=== PATIENT | female | born 1960 | race Caucasian/White ===

== ENCOUNTER 2023-04-30 09:05 | Outpatient (AMB) | payer MEDICARE, SELFPAY ==
--- NOTE | 2023-04-30 09:07 | A.OFFPC_ITS ---
Vital Signs 04/30/23 09:09 Height 5 ft 6.5 in Weight 182 lb 2 oz BMI 29.0 BP 122/72 Blood Pressure Location Lt brachial Position Sitting Pulse 67 Pulse Source Pulse Oximeter Pulse Oximetry (%) 99 Oxygen Delivery Method Room Air Intake Visit Reasons: 6 Month F/Up Intake Note: Patient is here to follow up on HTN. 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 Union Representative: Not Required per policy Accompanied by: Self / Same As Patient Allergies No Known Allergies Allergy (Verified 04/30/23 09:54) Medication List - Last Reconciled 04/30/23 by Evan Peterson MD amlodipine 2.5 mg PO DAILY hydrochlorothiazide 25 mg PO QAM lisinopril 20 mg PO DAILY 90 days Tobacco use date assessed: 04/30/23 Dental Screening Dental Screen Date: 04/30/23 Did you have a dental visit in the last 12 months?: No Did you have a dental problem in the last 6 months where you did not have access to dental care?: No Was dental information given to patient?: No HPI 6 Month F/Up HPI Details 62-year-old female presents to the offic e to discuss her chronic medical conditions. Patient is compliant with her blood pressure medications. She reports no side effects. Patient continues to have mobility issues and speech issues. She uses a walker. She needs the walker even at home. 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 Patient is seeing a neurologist for this. She received radiation on the breast in December. [facility] Medical History Stage IV breast cancer in female Essential (primary) hypertension Surgical History History of brain surgery Social History Housing: House Alcohol intake: current Alcohol intake frequency: holidays/special occasions only Patient Tobacco Use Status: Former Tobacco user e-Cigarette/Vaping Use: Never Used Second Hand Smoke Exposure: No service: No Current occupational status: disabled Cognitive needs: Yes (walker/cane) Hearing needs: No Vision needs: Yes (glasses) Questionnaire Thrive Questionnaire Date Thrive assessed: 10/30/22 PRITI-7 AMB Questionnaire PRITI-7 Date PRITI - 7 assessed: 10/30/22 Source: Developed by Drs. Piotr Catherine, Blanca Parekh, Sal Avila and colleagues, with an educational rosana from [employer]. Physical exam (Primary Care) Vital Signs: Last Vital Signs Pulse 67 04/30/23 09:09 BP 122/72 04/30/23 09:09 Pulse Ox 99 04/30/23 09:09 Oxygen Delivery Method Room Air 04/30/23 09:09 Care Plan Goal for BP management: Blood pressure is in range. BMI result Body Mass Index 29.0 Tobacco/Smoking Status: Tobacco use Status Tobacco use date assessed 04/30/23 04/30/23 09:13 Patient Tobacco Use Status Former Tobacco user 04/30/23 09:13 e-Cigarette/Vaping Use Never Used 04/30/23 09:13 Thrive Assessment: Date of Thrive Assessment Date Thrive assessed 10/30/22 04/30/23 09:13 Const General: cooperative and healthy appearing Nutritional Appearance: well nourished Orientation/consciousness: patient oriented x3 Limitations: no limitations HENMT Head: Yes normal to inspection Eyes General: appearance normal, both eyes and all related structures Neck Neck: Yes normal visual inspection Chest Chest palpation & inspection: normal palpation of entire chest wall Resp Effort & Inspection: normal respiratory effort Neuro General: patient oriented x3 Assessment and Plan Assessment & Plan (1) Stage IV breast cancer in female: Code(s): C50.919 - Malignant neoplasm of unspecified site of unspecified female breast Plan: Continue to follow-up with her oncologist at [facility]. She is also being evaluated by her neurologist for gait and speech issues. Patient continues to have slight slurring in the speech. (2) Essential (primary) hypertension: Code(s): I10 - Essential (primary) hypertension Plan: Blood pressure is stable. Continue medications at same dosage. Coding Level of Care Code Est Pt Level 4 (44917) Diagnoses Stage IV breast cancer in female C50.919 Essential (primary) hypertension I10
[2023-04-30 09:09] VITALS: BP 122/72; PULSE 67; O2SAT 99; BMI 29.0
== END 2023-04-30 09:49 | disposition home or self-care (01) ==
PROVIDERS: PCP Internal Medicine; Visit Provider Internal Medicine
DX: C50.919 Malignant neoplasm of unspecified site of unspecified female breast (principal); I10 Essential (primary) hypertension
CPT/HCPCS: 99214

== ENCOUNTER 2023-10-29 08:13 | Outpatient (AMB) | payer MEDICARE, SELFPAY ==
--- NOTE | 2023-10-29 08:31 | A.OFFPC_ITS ---
Vital Signs 10/29/23 08:35 Height 5 ft 6.5 in Weight 188 lb 3 oz BMI 29.9 BP 140/68 H Blood Pressure Location Lt brachial Position Sitting Pulse 72 Pulse Source Pulse Oximeter Pulse Oximetry (%) 98 Oxygen Delivery Method Room Air Intake Visit Reasons: 6mth f/u Intake Note: Patient is here to follow up on HTN. 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: No Capacitor Inspector: Not Required per policy Accompanied by: Self / Same As Patient Allergies No Known Allergies Allergy (Verified 10/29/23 08:56) Medication List - Last Reconciled 10/29/23 by Evan Peterson MD amlodipine 2.5 mg PO DAILY hydrochlorothiazide 25 mg PO QAM lisinopril 20 mg PO DAILY 90 days Tobacco use date assessed: 10/29/23 Dental Screening Dental Screen Date: 10/29/23 Did you have a dental visit in the last 12 months?: No Did you have a dental problem in the last 6 months where you did not have access to dental care?: No Was dental information given to patient?: No HPI 6mth f/u HPI Details 63-year-old female presents to the [facility] to discuss her chronic medical conditions. She is now using a walker and comes to the office alone. Patient has breast cancer with metastasis to the brain. Her current condition is stable. She is scheduled to have a biological infusion in the coming weeks. Patient gets an MRI scan every 3 months. Compliant with her medications for blood pressure. Able to function and do activities of daily living. She has weakness in the right hand due to her cancer condition. [facility] Medical History Stage IV breast cancer in female Essential (primary) hypertension Surgical History History of brain surgery Social History Housing: House Alcohol intake: current Alcohol intake frequency: holidays/special occasions only Patient Tobacco Use Status: Former Tobacco user e-Cigarette/Vaping Use: Never Used Second Hand Smoke Exposure: No service: No Current occupational status: disabled Cognitive needs: Yes (walker/cane) Hearing needs: No Vision needs: Yes (glasses) Questionnaire PHQ-9 Over the last 2 weeks, how often have you been bothered by any of the following problems? 1. Little interest or pleasure in doing things: not at all 2. Feeling down, depressed, or hopeless: not at all 3. Trouble falling or staying asleep, or sleeping too much: not at all 4. Feeling tired or having little energy: not at all 5. Poor appetite or overeating: not at all 6. Feeling bad about yourself - or that you are a failure or have let yourself or your family down: not at all 7. Trouble concentrating on things, such as reading the newspaper or watching television: not at all 8. Moving or speaking so slowly that other people could have noticed. Or the opposite - being so fidgety or restless that you have been moving around a lot more than usual: not at all 9. Thoughts that you would be better off or of hurting yourself in some way: not at all Total score: 0 Depression Screening Interpretation: Negative Depression Screening Done: Yes Source: Developed by Drs. Piotr Catherine, Blanca Parekh, Sal fernandez nd colleagues, with an educational rosana from [employer]. Thrive Questionnaire Date Thrive assessed: 10/29/23 I am a: Patient What is your living situation today?: I have a steady place to live Within the past 12 months, did the food you bought not last and you didn't have the money to get more?: Never true Within the past 12 months, did you worry whether your food would run out before you got money to buy more?: Never true Do you have trouble paying for medicines?: No Do you have trouble getting transportation to medical appointments?: No Do you have trouble paying your heating and electricity bill?: No Do you have trouble taking care of your child, family member or friend?: No Do you have trouble with day-to-day activities such as bathing, preparing meals, shopping, managing finances, etc.?: No Are you currently unemployed and looking for a job?: No Are you interested in more education?: No Currently or been in a relationship where the following occur: no concerns reported THRIVE Score: 0 AUDIT C Alcohol Use Questionnaire (AUDIT-C) 1. How often do you have a drink containing alcohol?: Monthly or less 2. How many drinks containing alcohol do you have on a typical day when you are drinking?: 1 or 2 Total Score: 1 PRITI-7 AMB Questionnaire PRITI-7 Date PRITI - 7 assessed: 10/29/23 Feeling nervous, anxious, or on edge: 0 = Not at all Not being able to stop or control worryin = Not at all Worrying too much about different things: 0 = Not at all Trouble relaxin = Not at all Being so restless that it is hard to sit still: 0 = Not at all Becoming easily annoyed or irritable: 0 = Not at all Feeling afraid as if something awful might happen: 0 = Not at all Total PRITI-7 score (0-4 normal; 5-9 mild; 10-14 moderate; 15-21 severe): 0 Source: Developed by Drs. Piotr Catherine, Blanca Parekh, Sal Avila and colleagues, with an educational rosana from [employer]. Physical exam (Primary Care) Vital Signs: Last Vital Signs Pulse 72 10/29/23 08:35 BP 140/68 H 10/29/23 08:35 Pulse Ox 98 10/29/23 08:35 Oxygen Delivery Method Room Air 10/29/23 08:35 BMI result Body Mass Index 29.9 Tobacco/Smoking Status: Tobacco use Status Tobacco use date assessed 10/29/23 10/29/23 08:40 Patient Tobacco Use Status Former Tobacco user 10/29/23 08:33 e-Cigarette/Vaping Use Never Used 10/29/23 08:33 PHQ-9: PHQ-9 Score PHQ-9: Total score 0 10/29/23 08:33 Depression Screening Interpretation: Negative Thrive Assessment: Date of Thrive Assessment Date Thrive assessed 10/29/23 10/29/23 08:33 Currently or been in a relationship where the following occur: no concerns reported Advance Care Planning discussion: Exists, not on file Date of discussion: 10/29/23 Who was present: Patient Forms completed: Health Care Proxy and MOLST Const General: cooperative and healthy appearing Nutritional Appearance: well nourished Orientation/consciousness: patient oriented x3 Limitations: no limitations HENMT Head: Yes normal to inspection Eyes General: appearance normal, both eyes and all related structures Neck Neck: Yes normal visual inspection Chest Chest palpation & inspection: normal palpation of entire chest wall Resp Effort & Inspection: normal respiratory effort Neuro General: patient oriented x3 Assessment and Plan Assessment & Plan (1) Stage IV breast cancer in female: Code(s): C50.919 - Malignant neoplasm of unspecified site of unspecified female breast Plan: Continue current treatment at [facility]. (2) Essential (primary) hypertension: Code(s): I10 - Essential (primary) hypertension Plan: BP is stable. Continue current medications at same dosage. Blood work has been ordered. Will call with results of the same. Orders: Orders Lipid Panel Today E78.00 - Pure hypercholesterolemia, unspecified Coding Level of Care Code Est Pt Level 4 (47177) Complex EM visit Add On G2211 Diagnoses Stage IV breast cancer in female C50.919 Essential (primary) hypertension I10 Additional Codes Vital Signs *Quality* - Advance Care Planning discussion: Exists, not on file ([id number])
[2023-10-29 08:35] VITALS: BP 140/68; PULSE 72; O2SAT 98; BMI 29.9
== END 2023-10-29 08:55 | disposition home or self-care (01) ==
PROVIDERS: PCP Internal Medicine; Visit Provider Internal Medicine
DX: C50.919 Malignant neoplasm of unspecified site of unspecified female breast (principal); I10 Essential (primary) hypertension; Z00.00 Encounter for general adult medical examination without abnormal findings
CPT/HCPCS: 1123F; 99214; G2211

== ENCOUNTER 2024-04-28 08:06 | Outpatient (AMB) | payer MEDICARE, SELFPAY ==
--- NOTE | 2024-04-28 08:16 | MHC.PC.OV ---
Vital Signs 04/28/24 08:17 Height 5 ft 6.5 in Weight 186 lb 4 oz BMI 29.6 BP 130/70 Blood Pressure Location Lt brachial Position Sitting Pulse 74 Pulse Source Pulse Oximeter Pulse Oximetry (%) 96 Oxygen Delivery Method Room Air Intake Visit Reasons: 6mth f/u Intake Note: Patient is here to follow up on HTN. 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 Wildlife Biology Technician: Not Required per policy Accompanied by: Self / Same As Patient Allergies No Known Allergies Allergy (Verified 04/28/24 08:17) Tobacco use date assessed: 04/28/24 Dental Screening Dental Screen Date: 10/29/23 [facility] Medical History Stage IV breast cancer in female Essential (primary) hypertension Surgical History History of brain surgery Social History Housing: House Alcohol intake: current Alcohol intake frequency: holidays/special occasions only Patient Tobacco Use Status: Former Tobacco user e-Cigarette/Vaping Use: Never Used Second Hand Smoke Exposure: Yes service: No Current occupational status: disabled Cognitive needs: Yes (walker/cane) Hearing needs: No Vision needs: Yes (glasses) Questionnaire Thrive Questionnaire Date Thrive assessed: 10/29/23 AUDIT C Alcohol Use Questionnaire (AUDIT-C) 2. How many drinks containing alcohol do you have on a typical day when you are drinking?: 1 or 2 3. How often do you have six or more drinks on one occasion?: Never Total Score: 0 PRITI-7 AMB Questionnaire PRITI-7 Date PRITI - 7 assessed: 10/29/23 Source: Developed by Drs. Piotr Catherine, Blanca Parekh, Sal Avila and colleagues, with an educational rosana from [employer]. Physical exam (Primary Care) Vital Signs: Last Vital Signs Pulse 74 04/28/24 08:17 BP 130/70 04/28/24 08:17 Pulse Ox 96 04/28/24 08:17 Oxygen Delivery Method Room Air 04/28/24 08:17 BMI result Body Mass Index 29.6 Tobacco/Smoking Status: Tobacco use Status Tobacco use date assessed 04/28/24 04/28/24 08:22 Patient Tobacco Use Status Former Tobacco user 04/28/24 08:22 e-Cigarette/Vaping Use Never Used 04/28/24 08:22 Thrive Assessment: Date of Thrive Assessment Date Thrive assessed 10/29/23 04/28/24 08:22 Coding Level of Care Code Est Pt Level 4 (80822) Complex EM visit Add On G2211 Diagnoses Stage IV breast cancer in female C50.919 Essential (primary) hypertension I10 Assessment & Plan Assessment & Plan (1) Stage IV breast cancer in female: Code(s): C50.919 - Malignant neoplasm of unspecified site of unspecified female breast Category: Medical Plan: Patient has an oncologist at [facility]. Getting all treatment including mammogram from there. Lung nodule follow up is also per the oncologist (2) Essential (primary) hypertension: Code(s): I10 - Essential (primary) hypertension Category: Medical Plan: BP is in range. Continue medications at same dosage. Labs from [facility] [place]. Plan History of Present Illness The patient is a 63-year-old female presenting with ongoing management of stage 4 breast cancer, initially diagnosed on the left side. She has been undergoing treatment, which she reports as progressing okay. However, a nodule on her lung has enlarged to 9 cm (?). She is scheduled to discuss management options with her oncologist, including possible medication changes, after the holiday season. This nodule's enlargement was identified during a routine evaluation, prompting considerations for a PET scan to better visualize it, as prior CT scans proved insufficient. The patient maintains regular monitoring through mammograms. Pertinent to her health management, her blood pressure remains under control. Social History - Primarily stays at home due to difficulty maneuvering in public spaces. - Occasionally goes out for meals or social visits. - Relies on a walker for ambulation. - Does not drive. Review of Systems - Cardiovascular: Reports stable blood pressure. - Respiratory: Denies any new respiratory symptoms. - Gastrointestinal: Reports normal appetite and bowel movements. - Vision: Reports normal vision, capable of watching TV and reading. - Urinary: Denies urinary issues. - General: Reports overall good health apart from known conditions. Physical Exam General: Appearance normal, both eyes and all related structures Nutritional Appearance: Well nourished Orientation/consciousness: Patient oriented x3 Limitations: Ambulates with a walker, not driving Head: Normal to inspection Neck: Normal visual inspection Chest: Normal palpation of entire chest wall Respiratory: Normal respiratory effort Neurology: Patient oriented x3 Results Plan - Continue current breast cancer treatment. - Evaluate lung nodule further; plan for a PET scan in May for more detailed assessment. - Monitor blood pressure; continue current medication regimen. - Discussed the need for potential medication adjustments post-holidays. Patient was informed and verbally consented to the use of an ambient scribe for clinic note documentation during this visit. Discussion Notes We reviewed the patient's current status with stage 4 breast cancer and the enlargement of a lung nodule. I indicated that a PET scan is planned for May to provide more detailed information as the current imaging is insufficient for further evaluation. We discussed continuing the current treatment for her cancer as it is effective elsewhere, and potential medication changes might be considered after upcoming discussions with her oncologist. I confirmed her blood pressure is stable, and no modifications to this treatment are necessary. Follow-up is scheduled following the results of the PET scan, and I have addressed all her questions. Patient Instructions - Continue current cancer and blood pressure medications. - Attend the scheduled PET scan appointment in May. - Report any new symptoms or concerns immediately. - Maintain regular healthcare appointments and monitoring. - Stay active as tolerated and continue using mobility aids as needed.
[2024-04-28 08:17] VITALS: BP 130/70; PULSE 74; O2SAT 96; BMI 29.6
== END 2024-04-28 08:43 | disposition home or self-care (01) ==
PROVIDERS: PCP Internal Medicine; Visit Provider Internal Medicine
DX: C50.919 Malignant neoplasm of unspecified site of unspecified female breast (principal); I10 Essential (primary) hypertension

== ENCOUNTER → 2024-04-28 08:06 | Outpatient (BNVA) | payer MEDICARE, SELFPAY | PROVIDERS: PCP Internal Medicine; Visit Provider Internal Medicine | DX: C50.919 Malignant neoplasm of unspecified site of unspecified female breast (principal); I10 Essential (primary) hypertension | CPT/HCPCS: 99212 ==

== ENCOUNTER 2024-10-27 08:27 | Outpatient (AMB) | payer MEDICARE, SELFPAY ==
--- OUTSIDE RECORDS SUMMARY | 2024-02-10 10:00 | XMS_ITS | Encounter Summary ---
Author Organization [facility] Address [address] [place] [address] Care Team Providers Care Button Clamper Name Role Phone Evan Peterson MD Primary Care Provider [phone]- [phone] Encounter Details Date Type Department Care Team [...] Care Team (Late st Contact Info) Description 11/01/2024 9:30 AM EDT Appointment [facility] [address] [phone] 11/01/2024 9:45 AM EDT Office Visit [facility] Hematology Oncology [address] [place] [phone] Millicent Boothe PA [address] [place] [address] 01/24/2025 1:30 PM EDT Appointment [facility] Radiation Oncology [address] [place] [phone] Jane Trent MD [address] [place] [address] documented as of this encounter Procedures Procedure Name Priority Date/Time Associated Diagnosis Comments HISTORICAL IMAGING SCAN RESULT 02/10/2024 CARDIOLOGY REPORT 02/10/2024 documented in this encounter Results * Cardiology Report (02/10/2024) Anatomical Region Laterality Modality Other us Provider Onbase CV HISTORICAL CONV PROCEDURES Final Result * HISTORICAL IMAGING SCAN RESULT (02/10/2024) Anatomical Region Laterality Modality Ultrasound us Provider Onbase MD TREVINO US PROCEDURES Final Resul t documented in [...] V28) documented in this encounter Care Teams Button Clamper Relationship Specialty Start Date End Date Evan Peterson MD [place] [address] [place] [address] PCP - General Internal Medicine 12/04/15 documented as of this encounter
--- NOTE | 2024-10-27 08:32 | MHC.PC.OV ---
Vital Signs 10/27/24 08:33 Height 5 ft 6.5 in Weight 171 lb 4.787 oz BMI 27.2 BP 140/72 H Blood Pressure Location Lt brachial Position Sitting Pulse 77 Pulse Source Pulse Oximeter Temp 96.9 F Temp Source Temporal Artery Scan Pulse Oximetry (%) 99 Oxygen Delivery Method Room Air Intake Visit Reasons: 6mth f/u Intake Note: Patient is here to follow up on HTN. Customer Service Correspondence Clerk Required: No Supervisor Boilermaking Shop: Not Required per policy Accompanied by: Self / Same As Patient Allergies No Known Allergies Allergy (Verified 10/27/24 08:33) Tobacco use date assessed: 10/27/24 Dental Screening Dental Screen Date: 10/27/24 Did you have a dental visit in the last 12 months?: Yes Did you have a dental problem in the last 6 months where you did not have access to dental care?: No Was dental information given to patient?: Patient has dentist [facility] Medical History Stage IV breast cancer in female Essential (primary) hypertension Surgical History History of brain surgery Social History Housing: House Alcohol intake: current Alcohol intake frequency: holidays/special occasions only Patient Tobacco Use Status: Former Tobacco user e-Cigarette/Vaping Use: Never Used Second Hand Smoke Exposure: Yes service: No Current occupational status: disabled Cognitive needs: Yes (walker/cane) Hearing needs: No Vision needs: Yes (glasses) Questionnaire PHQ-9 Over the last 2 weeks, how often have you been bothered by any of the following problems? 1. Little interest or pleasure in doing things: not at all 2. Feeling down, depressed, or hopeless: not at all 3. Trouble falling or staying asleep, or sleeping too much: several days 4. Feeling tired or having little energy: several days 5. Poor appetite or overeating: several days 6. Feeling bad about yourself - or that you are a failure or have let yourself or your family down: not at all 7. Trouble concentrating on things, such as reading the newspaper or watching television: not at all 8. Moving or speaking so slowly that other people could have noticed. Or the opposite - being so fidgety or restless that you have been moving around a lot more than usual: not at all 9. Thoughts that you would be better off or of hurting yourself in some way: not at all Total score: 3 Depression Screening Interpretation: Positive Depression Screening Done: Yes Source: Developed by Drs. Piotr Catherine, Blanca Parekh, Sal Avila and colleagues, with an educational rosana from [employer]. Thrive Questionnaire Date Thrive assessed: 10/22/24 I am a: Patient What is your living situation today?: I have a steady place to live Within the past 12 months, did the food you bought not last and you didn't have the money to get more?: Never true Within the past 12 months, did you worry whether your food would run out before you got money to buy more?: Never true Do you have trouble paying for medicines?: No Do you have trouble getting transportation to medical appointments?: No Do you have trouble paying your heating and electricity bill?: No Do you have trouble taking care of your child, family member or friend?: No Do you have trouble with day-to-day activities such as bathing, preparing meals, shopping, managing finances, etc.?: No Are you currently unemployed and looking for a job?: No Are you interested in more education?: No Please select the resources that you would like help with: None Currently or been in a relationship where the following occur: No concerns reported THRIVE Score: 0 AUDIT C Alcohol Use Questionnaire (AUDIT-C) 1. How often do you have a drink containing alcohol?: Monthly or less 2. How many drinks containing alcohol do you have on a typical day when you are drinking?: 1 or 2 3. How often do you have six or more drinks on one occasion?: Never Total Score: 1 PRITI-7 AMB Questionnaire PRITI-7 Date PRITI - 7 assessed: 10/27/24 Feeling nervous, anxious, or on edge: 0 = Not at all Not being able to stop or control worryin = Not at all Worrying too much about different things: 0 = Not at all Trouble relaxin = Not at all Being so restless that it is hard to sit still: 0 = Not at all Becoming easily annoyed or irritable: 0 = Not at all Feeling afraid as if something awful might happen: 0 = Not at all Total PRITI-7 score (0-4 normal; 5-9 mild; 10-14 moderate; 15-21 severe): 0 Source: Developed by Drs. Piotr Catherine, Blanca Parekh, Sal Avila and colleagues, with an educational rosana from [employer]. Physical exam (Primary Care) Vital Signs: Last Vital Signs Temp 96.9 F 10/27/24 08:33 Pulse 77 10/27/24 08:33 BP 140/72 H 10/27/24 08:33 Pulse Ox 99 10/27/24 08:33 Oxygen Delivery Method Room Air 10/27/24 08:33 BMI result Body Mass Index 27.2 Tobacco/Smoking Status: Tobacco use Status Tobacco use date assessed 10/27/24 10/27/24 08:38 Patient Tobacco Use Status Former Tobacco user 10/27/24 08:38 e-Cigarette/Vaping Use Never Used 10/27/24 08:38 PHQ-9: PHQ-9 Score PHQ-9: Total score 3 10/27/24 08:38 Depression Screening Interpretation: Positive Thrive Assessment: Date of Thrive Assessment Date Thrive assessed 10/22/24 10/27/24 08:38 Currently or been in a relationship where the following occur: No concerns reported Advance Care Planning discussion: Exists, not on file Forms completed: Health Care Proxy and MOLST Time spent: 1-15 minutes, not on file Actual minutes spent: 5 Coding Level of Care Code Est Pt Level 4 (76515) Complex EM visit Add On G2211 Diagnoses Essential (primary) hypertension I10 Stage IV breast cancer in female C50.919 Additional Codes Vital Signs *Quality* - Advance Care Planning discussion: Exists, not on file ([id number]) Vital Signs *Quality* - Time spent: 1-15 minutes, not on file ([id number]) Assessment & Plan Assessment & Plan (1) Essential (primary) hypertension: Code(s): I10 - Essential (primary) hypertension Category: Medical Plan: Blood pressure is in range. Continue medications at same dosage. (2) Stage IV breast cancer in female: Code(s): C50.919 - Malignant neoplasm of unspecified site of unspecified female breast Category: Medical Plan: Unfortunately patient's condition continues to worsen. She is now scheduled for new chemotherapy. All her care is being done at [facility]. Plan History of Present Illness - The patient is a 64-year-old female presenting for ongoing management of breast cancer and chemotherapy treatment. - The patient has been undergoing treatment for breast cancer, initially with Herceptin and Vergetta, which was changed in May. - The patient reports that the treatment with InHer2 is improving, although she is still adjusting to the regimen. - The chemotherapy regimen includes InHer2, with sessions scheduled every few weeks at [facility]. - The patient reports limited physical activity due to fatigue but manages to get around with some effort. - Appetite is maintained as the patient eats out of necessity, and sleep is generally adequate with occasional disturbances. - Bowel movements are reported as regular, and there is no pain reported. Social History - The patient reports limited physical activity due to fatigue but manages to get around with some effort. - Appetite is maintained as the patient eats out of necessity. Review of Systems - General: Reports fatigue, denies pain. - Gastrointestinal: Reports regular bowel movements. - Neurological: Reports adequate sleep with occasional disturbances. Physical Exam General: Cooperative and healthy appearing Nutritional Appearance: Well nourished Orientation/consciousness: Patient oriented x3 Limitations: No limitations Head: Normal to inspection General: Appearance normal, both eyes and all related structures Neck: Normal visual inspection Chest: Normal palpation of entire chest wall Respiratory: Normal respiratory effort Neurology: Patient oriented x3 Results Plan 1. Breast Cancer - Continue chemotherapy with InHer2, with sessions scheduled every few weeks at [facility]. - Monitor treatment response and adjust regimen as necessary. Discussion Notes The patient was advised to continue with the current chemotherapy regimen of InHer2, with sessions scheduled every few weeks at [facility]. Monitoring of treatment response was discussed, and adjustments to the regimen will be made as necessary. The patient was encouraged to use the portal for communication and follow-up appointments were scheduled for six months. Patient Instructions - Continue chemotherapy sessions as scheduled. - Monitor for any changes in symptoms and report them. - Use the portal for communication with the healthcare team. - Follow up in six months.
[2024-10-27 08:33] VITALS: BP 140/72; PULSE 77; TEMP 36.1; O2SAT 99; BMI 27.2
== END 2024-10-27 08:54 | disposition home or self-care (01) ==
PROVIDERS: PCP Internal Medicine; Visit Provider Internal Medicine
DX: I10 Essential (primary) hypertension (principal); C50.919 Malignant neoplasm of unspecified site of unspecified female breast; Z00.00 Encounter for general adult medical examination without abnormal findings

== ENCOUNTER → 2024-10-27 08:27 | Outpatient (BNVA) | payer MEDICARE, SELFPAY | PROVIDERS: PCP Internal Medicine; Visit Provider Internal Medicine | DX: I10 Essential (primary) hypertension (principal); C50.919 Malignant neoplasm of unspecified site of unspecified female breast | CPT/HCPCS: 99212 ==

== ENCOUNTER 2025-04-27 08:36 | Outpatient (AMB) | payer MEDICARE, SELFPAY ==
--- OUTSIDE RECORDS SUMMARY | 2023-12-30 08:30 | XMS_ITS | Encounter Summary ---
Author Organization [facility] [place] [address] Care Team Providers Care Delimber Operator Name Role Phone Evan Peterson MD Primary Care Provider [phone] Encounter Details Date Type Department Care Team (Late Contact Info) Description 12/30/2023 9:30 AM EDT Hospital Encounter TH HISTORIC ENCOUNTERS [facility] CONVERSION ONLY Manish Tamez MD [address] [place] [phone] Social History Tobacco Use Types Packs/Day Years Used Date Smoking Tobacco: Former Smokeless Tobacco: Never Alcohol Use Standard Drinks/Week Comments Yes 0 (1 standard drink = 0.6 oz pur e alcohol) Comments Unknown Sex and Gender Information Value Date Recorded Sex Assigned at Female 03/14/2024 2:29 PM EST Legal Sex Female 2:32 AM EST Gender Identity Female 03/14/2024 2:29 PM EST Sexual Orientation Straight 05/24/2024 9: 56 AM EST documented as of this encounter Plan of Treatment Upcoming Encounters Date Type Department Care Team (Late Contact Info) Description 05/09/2025 9:00 AM EST Appointment [facility] [address] [phone] 05/30/2025 9:15 AM EST Office Visit [facility] Hematology Oncology [address] [place] [phone] Manish Tamez MD [address] [place] [phone] 06/01/2025 1:30 PM EST Ancillary Procedure [facility] [address] [place] [address] 07/20/2025 11:30 AM EDT Appointment [facility] Radiation Oncology [address] [place] [phone] Nicole Worley NP [address] [place] [address] documented as of this encounter Visit Diagnoses Not on filedocumented in this encounter Care Teams Delimber Operator Relationship Specialty Start Date End Date Evan Peterson MD [address] [place] [address] PCP - General Internal Medicine 12/04/15 documented as of this encounter
--- OUTSIDE RECORDS SUMMARY | 2024-02-10 08:25 | XMS_ITS | Encounter Summary ---
Author Organization [facility] [place] [address] Care Team Providers Care Merchandise Support Associate Name Role Phone Evan Peterson MD Primary Care Provider +1- [phone] Encounter Details Date Type Department Care Team (Late st Contact Info) Description 02/10/2024 9:25 AM EDT Hospital Encounter TH HISTORIC ENCOUNTERS EASTERN CONVERSION ONLY Estelle-Manish Charlton MD [address] [place] [phone] Social History Tobacco Use Types Packs/Day Years [...] AM EST documented as of this encounter Last Filed Vital Signs Vital Sign Reading Time Taken Comments Blood Pressure 136/69 02/10/2024 9:33 AM EDT Sitting Right arm Pulse 60 02/10/2024 9:33 AM EDT Temperature - - Respiratory Rate - - Oxygen Saturation - - Inhaled Oxygen Concentration - - Weight 86 kg (189 lb 9.6 oz) 02/10/2024 10:11 AM EDT Height 167.6 cm (5' 6 ) 02/10/2024 9:33 AM EDT Body Mass Index 30.6 02/10/2024 9:33 AM EDT documented in this encounter Progress Notes * Manish Tamez MD - 02/10/2024 9:30 AM EDT Images from the original note were not included. Progress Notes by Manish Noriega MD at 02/10/2024 9:30 AM Author: Manish Noriega MD Service: -- Author Type: Physician Filed: 02/10/2024 5:40 PM Encounter Date: 02/10/2024 Status: Signed Embroiderer: Manish Noriega MD (Physician) CHIEF COMPLAINT: Chief Complaint Patient presents with ? Follow-up Breast cancer x 8 years, initially docetaxel thereafter on maintenance regimen with stable disease brain mets stasis Bone metastasis Liver metastasis Lung metastasis Current regimen--trastuzumab, pertuzumab, Zometa Breast cancer IDENTIFIER:Kayleen Michelle is a 63 y.o. female. HPI: The patient returns for follow up of breast cancer, on treatment since 2015--initially with docetaxel, thereafter current regimen was continued Patient was seen in clinic 6 weeks ago. Since then she had restaging imaging, MRI of the brain that is reviewed. Patient is feeling well without any new symptoms. She had echocardiogram, stable EF. She completed the next restaging imaging, reviewed CT CAP from October, stable disease p, will plan todo another imaging before the next visit, will be in early March 1 small lung nodule enlarging 3 to 6 mm, continue surveillance plan to continue restaging at 4-month interval Echocardiogram from October-stable ejection fraction, will need another 1 in January ordered Will plan to continue with Herceptin/Perjeta today as she has excellent disease control with the same We will plan to continue restaging imaging every 4 -6 months, plan for February --okay to order at next visit . The following is copied, reviewed and edited Cancer Staging Malignant neoplasm of overlapping sites of left breast in female, estrogen receptor negative (HCC) Staging form: Breast, AJCC 8th Edition - Clinical stage from 11/28/2015: Stage IV (cT4b, cN3c, cM1, G3, ER-, KS-, HER2+) - Signed by Jovi Amaral MD on 09/21/2021 Oncology History Overview Note Presented in November 2015 with a large ulcerating mass involving the left breast with extensive bone, lung and liver involvement. Tumor was hormone receptor negative and HER-2 positive. She was treated initially with docetaxel, trastuzumab and Pertuzumab with excellent response followed by continued ma intenance with trastuzumab and epratuzumab every 3 weeks as well as Zometa infusions monthly.. Brain MRI performed August 06, 2018 identified a 2.9 cm right cerebellar mass presumed to be metastatic breast cancer. Between August 13 and August 19, 2018 3000 CG Y were administered to the cerebellar lesion in 5 fractions. Metastases the cerebellum eventually progressed and on 02/28/2020 craniotomy was performed and 2 metastases were excised. Adjuvant radiation was administered. Postoperatively she developed problems with balance, slurred speech and difficulty controlling her right arm and hand. Maintenance trastuzumab/Pertuzumab has been continued to the present. Echocardiograms have been performed every 3 months with no evidence of decrease in LVEF. Malignant neoplasm of overlapping sites of left breast in female, estrogen receptor negative (HCC) 11/28/2015 - Initial Cancer Staged Staging form: Breast, AJCC 8th Edition - Clinical stage from 11/28/2015: Stage IV (cT4b, cN3c, cM1, G3, ER-, KS-, HER2+) 01/21/2017 Initial Diagnosis Malignant neoplasm of overlapping sites of left female breast (HCC) 10/09/2021 - Chemotherapy [facility] OP DDAC, FOLLOWED BY WEEKLY PACLITAXEL X 12 + (TRASTUZUMAB + PERTUZUMAB EVERY 3 WEEKS X 4 ,FOLLOWED BY TRASTUZUMAB + PERTUZUMAB X1 YEAR Plan Provider: Manish Charlton MD Treatment goal: Palliative Line of treatment: Second Line Malignant neoplasm metastatic to brain (HCC) 09/06/2018 Initial Diagnosis Brain metastases (HCC) 10/09/2021 - Chemotherapy [facility] OP DDAC, FOLLOWED BY WEEKLY PACLITAXEL X 12 + (TRASTUZUMAB + PERTUZUMAB EVERY 3 WEEKS X 4 ,FOLLOWED BY TRASTUZUMAB + PERTUZUMAB X1 YEAR Plan Provider: Manish Charlton MD Treatment goal: Palliative Line of treatment: Second Line 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) 09/06/2018 Initial Diagnosis 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) 10/09/2021 - [facility], FOLLOWED BY WEEKLY PACLITAXEL X 12 + (TRASTUZUMAB + PERTUZUMAB EVERY 3 WEEKS X 4 ,FOLLOWED BY TRASTUZUMAB + PERTUZUMAB X1 YEAR Plan Provider: Manish Charlton MD Treatment goal: Palliative Line of treatment: Second Line Malignant neoplasm metastatic to bone (HCC) 09/06/2018 Initial Diagnosis Bone metastases (HCC) 10/09/2021 - [facility], FOLLOWED BY WEEKLY PACLITAXEL X 12 + (TRASTUZUMAB + PERTUZUMAB EVERY 3 WEEKS X 4 ,FOLLOWED BY TRASTUZUMAB + PERTUZUMAB X1 YEAR Plan Provider: Manish Charlton MD Treatment goal: Palliative Line of treatment: Second Line 10/30/2021 - [facility]ive [facility] ZOLEDRONIC ACID (ZOMETA) Plan Provider: Bebeto Louis MD Metastatic adenocarcinoma to liver (HCC) 10/06/2018 Initial Diagnosis Metastatic adenocarcinoma to liver (HCC) 10/09/2021 - Chemotherapy [facility] OP PERTUZUMAB / TRASTUZUMAB / PACLITAXEL Plan Provider: Bebeto Louis MD Treatment goal: Palliative Line of treatment: Maintenance 10/09/2021 - [facility], FOLLOWED BY WEEKLY PACLITAXEL X 12 + (TRASTUZUMAB + PERTUZUMAB EVERY 3 WEEKS X 4 ,FOLLOWED BY TRASTUZUMAB + PERTUZUMAB X1 YEAR Plan Provider: Manish Charlton MD Treatment goal: Palliative Line of treatment: Second Line 10/2021 - Patient reports that she is feeling well. She continues on combination therapy with trastuzumab andPerjeta. Her prior history is reviewed in detail as below. She has some speech difficulties, related to Prior brain mets stasis. She uses a cane for ambulation. Denies any episode of falls. No significant skeletal pain. Denies any headache or vision changes Patient reports some drainage from the left breast, on the lateral aspect area of mass. Previous discussions included surgery/mastectomy as well as palliative radiation. Patient had previous discussion with radiation oncology, chose to hold off. Can refer again if skin breakdown worsens. She will receive Zometa infusions every 6 weeks, tolerating it well Lab work is reviewed 11/2021 - Patient was last seen by Dr. Amaral on 09/18/2021. She was evaluated in the infusion room 3 weeks ago. She had restaging imaging and is here for follow-up. She is accompanied by her . Patient reports that she is tolerating current treatment quite well. 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 Patient is ambulating using a cane. No falls. Imaging study revealed persistent left breast lesion, hepatic lesion that is calcified, likely scarring. She does not wish to pursue radiation at this point Continues on Zometa infusion Latest echocardiogram was from September, showed normal ejection fraction, Due for next echo monitoring, will order She had a brain MRI in August, that showed stable changes, treated brain metastasis. 04/2022 -Since then patient had an episode of COVID-19 despite having vaccination. She reports nasal congestion, and cough. She had poor taste, compounded by the pax therapy and was unable to eat fora few days. She has lost about 7 pounds in weight.chadd Recently had follow-up with Dr. Trent, and had an MRI of the brain, negative for any metastatic progression Patient denies any nausea she had an echocardiogram, normal EF ROS: GENERAL: No malaise, significant weight loss or fever Stable weight Speech impairments, are stable Mild fatigue NECK: No lumps, goiter, pain or significant neck swelling RESPIRATORY: No cough, wheezing or shortness of breath CARDIOVASCULAR: No chest pain, leg swelling or palpitations GI: No abdominal discomfort, blood in stools or black stools MUSCULOSKELETAL: No joint pain or swelling, back pain, or muscle pain. Unstable gait HEMATOLOGY/LYMPHOLOGY No prolonged bleeding, easy bruisability or swollen nodes Other Systems review is non contributory PAST MEDICAL HISTORY: Active Ambulatory Problems Diagnosis Date Noted ? Malignant neoplasm of overlapping sites of left breast in female, estrogen receptor negative (HCC) 01/21/2017 ? Malignant neoplasm metastatic to brain (HCC) 09/06/2018 ? 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 Malignant neoplasm metastatic to bone (HCC) 09/06/2018 ? Metastatic adenocarcinoma to liver (HCC) 10/06/2018 ? Hypertension 02/13/2019 ? Chemotherapy-induced peripheral neuropathy (HCC) 03/23/2019 ? COVID-19 04/11/2022 ? Weight loss 04/11/2022 ? Flexural atopic dermatitis 08/26/2023 Resolved Ambulatory Problems Diagnosis Date Noted ? No Resolved Ambulatory Problems Past Medical History: Diagnosis Date ? Breast cancer (HCC) ? Cardiac disease ? Diabetes mellitus (HCC) ? Metastatic cancer (HCC) ? Skin cancer SOCIAL HISTORY: Social History Tobacco Use ? Smoking status: Former ? Smokeless tobacco: Never Substance Use Topics ? Alcohol use: Yes Comment: occassionaly FAMILY HISTORY: Family History Family history unknown: Yes Current Outpatient Medications: ? amLODIPine (NORVASC) tablet 2.5 mg, TAKE 1 TABLET BY MOUTH EVERY DAY, Disp: 90 tablet, Rfl: 0 ? anastrozole (ARIMIDEX) 1 MG crushed tab, Take 1 tablet (1 mg total) by mouth daily., Disp: , Rfl: ? Cholecalciferol (VITAMIN D3 PO), Take 2,000 Units by mouth daily., Disp: , Rfl: ? clobetasol (TEMOVATE) 0.05 % cream, Apply topically 2 (two) times a day., Disp: 60 g, Rfl: 5 ? fluticasone (FLONASE) 50 MCG/ACT nasal spray, spray/apply 1 spray in each nostril daily., Disp: ,Rfl: ? hydroCHLOROthiazide (HYDRODIURIL) tablet 25 mg, Take 1 tablet (25 mg total) by mouth daily., Disp: , Rfl: ? hydrOXYzine (VISTARIL) 25 MG capsule, TAKE 1 CAPSULE BY MOUTH 3 TIMES A DAY NEEDED FOR ITCHING., Disp: 90 capsule, Rfl: 1 ? lisinopril (PRINIVIL,ZESTRIL) tablet 10 mg, Take 2 tablets (20 mg total) by mouth daily., Disp: ,Rfl: ? ondansetron (ZOFRAN-ODT) 8 MG disintegrating tablet, TAKE 1 TABLET BY MOUTH EVERY 8 HOURS NEEDED FOR NAUSEA, Disp: 15 tablet, Rfl: 11 ? pertuzumab (PERJETA) 420 MG/14ML SOLN injection, Inject into the vein every 21 days., Disp: , Rfl: ? predniSONE (DELTASONE) tablet 20 mg, Take 1 tablet (20 mg total) by mouth daily., Disp: 7 tablet,Rfl: 0 ? senna-docusate (PERICOLACE) 8.6-50 MG, Take 2 tablets by mouth daily as needed for constipation.,Disp: 60 tablet, Rfl: 1 ? TRASTUZUMAB IV, Inject into the vein every 21 days., Disp: , Rfl: ? zoledronic acid (ZOMETA) 4 MG/100ML SOLN IVPB, 4 mg iv over 30 minutes every 6 weeks, Disp: 100 mL, Rfl: 8 You are allergic to the following Date Reviewed: 10/30/2021 No active allergies PHYSICAL EXAM: BP 136/69 (BP Location: Right arm) Pulse 60 Temp 97.7 ??F (36.5 ??C) (Temporal) Ht 5' 6 (1.676 m) Wt 86 kg (189 lb 9.6 oz) SpO2 99% BMI 30.60 kg/m?? APPEARANCE: Alert and in no acute distress Stable weight, staccato speech EYES: PERRL, conjunctiva pink and sclera are Normal without icterus ORAL CAVITY: No erythema or exudates NECK: Neck supple, no adenopathy, HEART: RRR with normal S1 and S2, no murmurs, no gallops, no JVD appreciated LUNG: clear to auscultation bilaterally Percussion note normal LYMPH NODES: No palpable superficial adenopathy ABDOMEN: Bowel sounds normoactive, no bruits, soft, non-tender, without organomegaly or palpable masses EXTREMITIES: Extremities warm and well perfused without clubbing, cyanosis Bilateral flexural eczematous rash, both elbows medially NEURO: Oriented X 3, no focal weakness; sensation is normal Slow gait using a rolling walker LABS: Review of Lab results , interpreted Labs reviewed from [facility] system Every 6 weeks Latest set of labs reviewed from July, will have them done here in the infusion room - Review of Imaging, interpreted Echocardiogram-reviewed from October CT Chest W - 11/09/23 - 1030 Report Status:Signed PROCEDURE: Chest, abdomen, pelvis CT INDICATION: LEFT BREAST CA; IMPRESSION: Unchanged large left breast mass with associated surrounding skin thickening and nodularity consistent with the history of neoplasm. Increased left medial upper lobe pulmonary nodule suspicious for metastatic disease. Unchanged bone metastases. MR Brain W WO - 01/15/24 - Report Status:Signed EXAMINATION: MRI brain with and without contrast. CLINICAL INDICATION: Metastatic breast cancer. Status post SRS 08/19/2018. Status post resection 02/09/2020. The graft comparison: MRI brain 09/07/2023. COMPARISON: MRI brain 09/07/2023. FINDINGS: There is no restricted diffusion seen to suspect any acute ischemic changes. There are FLAIR T2 signal changes in the right inferior parietal lobe and right paramedian cerebellar hemisphereadjacent to the fourth ventricle with trace enhancement in right cerebellar hemisphere and along the right tentorium extending in the occipital region. It appears similar to previous exam with no major change. Similar findings were seen on the previous exam 09/07/2023. There is a punctate T2 signal change in left deep white matter of parieto-occipital lobe, similar to previous study without enhancement.. There are no additional areas of enhancement, edema or mass. There is T2 signal changes in the deep white matter of both cerebral hemispheres without mass effect. The lateral ventricles are symmetrical in size and configuration without enlargement. There is milddistortion of posterior of fourth ventricle secondary to postsurgical changes. There is nonspecificmeningeal/tentorial enhancement with no thickening or extra-axial fluid collection. The paranasal sinuses and the scalp soft tissues are unremarkable. There is normal flow-void signal seen in major cerebral vasculature. IMPRESSION: Hypodensity in the right inferior occipital lobe and right paracentral cerebral hemispheres with corresponding enhancement which appears similar to previous study especially in the cerebellar hemisphere. These could represent post surgical changes however recurrence cannot be entirely excluded. Punctate T2 FLAIR signal change deep white matter of left posterior parietal lobe without enhancement. It is similar to previous study. Review of External Documentation Tests ordered - Lab work every 6 weeks Echocardiogram-July IMPRESSION: SNOMED CT(R) 1. Malignant neoplasm of overlapping sites of left breast in female, estrogen receptor negative (HCC) MALIGNANT NEOPLASM OF OVERLAPPING SITES OF BREAST 2. Malignant neoplasm metastatic to brain (HCC) METASTATIC MALIGNANT NEOPLASM TO BRAIN 3. 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) METASTATIC ADENOCARCINOMA TO BILATERAL LUNGS 4. Malignant neoplasm metastatic to bone (HCC) METASTATIC MALIGNANT NEOPLASM TO BONE 5. Chemotherapy-induced peripheral neuropathy (HCC) PERIPHERAL NEUROPATHY DUE TO AND FOLLOWING ANTINEOPLASTIC THERAPY 6. Primary hypertension ESSENTIAL HYPERTENSION PLAN: 63 -year-old lady with HER2 positive breast cancer, metastatic at presentation in November 2015 Reviewed her prior history in detail with her at a prior visit Continue management with maintenance therapy per NCCN guidelines, patient is tolerating current treatment very well Latest imaging studies demonstrated stable disease, reviewed in detail with the patient #1 metastatic breast cancer Continuing on combination immunotherapy pertuzumab and Herceptin , over the last 8 years. She is tolerating infusions quite well Restaging imaging is reviewed in detail with her, plan at 4-month interval, stable except for 1 small nodule in the lung 3 to 6 mm slight increase, will monitor with further CT imaging at 4 to 6-month interval ordered today for March MRI is reviewed from January from radiation oncology, next 1 will be 4 months later Plan to continue pertuzumab and Herceptin at standard dosing Patient is tolerating medication well show- Will monitor labs at 6-week interval, will do in the infusion room no need to wait for results before treatment #2 ejection fraction monitoring Latest echocardiogram from January--normal ejection fraction, stable, --request appointment for April-will request after the next visit #3 monitor closely for any respiratory symptoms given the new small lung nodule #4 skeletal metastasis Continue Zometa Q 6 weeks, tolerating well, monitor for hypocalcemia, dental issues The next treatment will be due today, and thereafter in March Normal lab results reviewed sodium level has improved -Latest tumor marker is in the normal range 14, previously 16 We will also obtain lab work every 6 weeks including CBC-D, CMP, CA 27-29, --Requested in the infusion room #5 essential hypertension,improved, follow With PCP #6 Eczema bilateral flexural areas, continue hydroxyzine 25 mg October 3 times daily, prednisone as needed #7 goals of care, patient wishes to continue aggressive care for now Second line treatments for HER2 positive disease are available such as Kadcyla, and Enhertu if she should experience disease progression Clinic follow-up in 6 weeks, and sooner if new issues arise. Pain Control--no issues Health Care Proxy--her Manish Noriega MD Cc Evan Peterson MD Cc Jane Trent documented in this encounter Plan of Treatment Upcoming Encounters Date Type Department Care Team (Late st Contact Info) Description 05/09/2025 9:00 AM EST Appointment [facility] Infusion Center [address] [place] [address] [address] [place] [address] 05/30/2025 9:15 AM EST Office Visit [facility] Hematology Oncology [address] [place] [phone] Manish Tamez MD [address] [place] [address] 06/01/2025 1:30 PM EST Ancillary Procedure [facility] [address] [place] [address] 07/20/2025 11:30 AM EDT Appointment [facility] Radiation Oncology [address] [place] [phone] Nicole Worley NP [address] [place] [address] documented as of this encounter Procedures Procedure Name Priority Date/Time Associated Diagnosis Comments ..MISCELLANEOUS REFERENCE LAB TEST 02/10/2024 ..MISCELLANEOUS REFERENCE LAB TEST 02/10/2024 documented in this encounter Results * Miscellaneous reference lab test (02/10/2024) us Provider Onbase MD LAB BLOOD ORDERABLES Final Re sult * Miscellaneous reference lab test (02/10/2024) us Provider Onbase MD LAB BLOOD ORDERABLES Final Re sult documented in this encounter Visit Diagnoses Not on filedocumented in this encounter Care Teams Merchandise Support Associate Relationship Specialty Start Date End Date Evan Peterson MD [address] [facility] [address] PCP - General Internal Medicine 12/04/15 documented as of this encounter
--- OUTSIDE RECORDS SUMMARY | 2024-02-10 09:00 | XMS_ITS | Encounter Summary ---
Author Organization [facility] Address [address] [place] [address] Care Team Providers Care Fur Sewer Name Role Phone Evan Peterson MD Primary Care Provider +1- [phone] Encounter Details Date Type Department Care Team (Latest Contact Info) Description 02/10/2024 10:00 AM EDT Hospital Encounter TH HISTORIC ENCOUNTERS EASTERN CONVERSION ONLY Malignant neoplasm of overlapping sites of left female breast (CMS/HCC V24, CMS/HCC V28); Estrogen receptor negative status (ER-); Secondary malignant neoplasm of liver and intrahepatic bile duct (CMS/HCC V24, CMS/HCC V28); Secondary malignant neoplasm of brain (CMS/HCC V24, CMS/HCC V28); Secondary malignant neoplasm of right lung (CMS/HCC V24, CMS/HCC V28); Secondary malignant neoplasm of left lung (CMS/HCC V24, CMS/HCC V28); Secondary malignant neoplasm of bone (CMS/HCC V24, CMS/HCC V28) Social History Tobacco Use Types Packs/Day Years [...] Sign Reading Time Taken Comments Blood Pressure - - Pulse - - Temperature - - Respiratory Rate - - Oxygen Saturation - - Inhaled Oxygen Concentration - - Weight 86 kg (189 lb 9.6 oz) 02/10/2024 10:11 AM EDT Height 167.6 cm (5' 6 ) 02/10/2024 9:33 AM EDT Body Mass Index 30.6 02/10/2024 9:33 AM EDT documented in this encounter Progress Notes * Historical, Notes Results - 02/10/2024 10:00 AM EDT Pt arrives stable for treatment today after OV. Dr Charlton would like labs today and then q6 weeks,no need to wait for results. These labs will be used for zometa at next apt. Denies any acute issues, labs drawn per protocol without incident via portacath and last ECHO reviewed- WNL 02/07. reviewed, will scan into system today. ?Pt rested during treatment and tolerated without incident. Stable upon discharge via rolling walker with apts in place. at side. documented in this encounter Plan of Treatment Upcoming Encounters Date Type Department Care Team (Late st Contact Info) Description 05/09/2025 9:00 AM EST Appointment [facility] Infusion Center [address] [phone] 05/30/2025 9:15 AM EST Office Visit [facility] Hematology Oncology [address] [place] [phone] Estelle-Manish Charlton MD [address] [place] [phone] 06/01/2025 1:30 PM EST Ancillary Procedure [facility] [address] [place] [phone] 07/20/2025 11:30 AM EDT Appointment [facility] Radiation Oncology [address] [place] [phone] Nicole Worley NP [address] [place] [address] documented as of this encounter Procedures Procedure Name Priority Date/Time Associated Diagnosis Comments HISTORICAL IMAGING SCAN RESULT 02/10/2024 CARDIOLOGY REPORT 02/10/2024 documented in this encounter Results * Cardiology Report (02/10/2024) Anatomical Region Laterality Modality Other us Provider Onbase CV HISTORICAL CONV PROCEDURES Final Result * HISTORICAL IMAGING SCAN RESULT (02/10/2024) Anatomical Region Laterality Modality Ultrasound us Provider Onbase IMG US PROCEDURES Final Resul t documented in this encounter Visit Diagnoses Diagnosis Malignant neoplasm of overlapping sites of left female breast (CMS/HCC V24, CMS/HCC V28) Estrogen receptor negative status (ER-) Estrogen receptor negative status [ER-] Secondary malignant neoplasm of liver and intrahepatic bile duct (CMS/HCC V24, CMS/HCC V28) Secondary malignant neoplasm of brain (CMS/HCC V24, CMS/HCC V28) 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
--- OUTSIDE RECORDS SUMMARY | 2024-03-01 08:59 | XMS_ITS | Encounter Summary ---
Author Organization [facility] [place] [address] Care Team Providers Care Realtime Court Reporter Name Role Phone Evan Peterson MD Primary Care Provider [phone]- [phone] Encounter Details Date Type Department Care Team ([facility] st Contact Info) Description 03/01/2024 9:59 AM EDT Hospital Encounter TH HISTORIC ENCOUNTERS EASTERN CONVERSION ONLY Social History Tobacco Use Types Packs/Day Years [...] Progress Notes * Historical, Notes Results - 03/01/2024 10:00 AM EDT Images from the original note were not included. Progress Notes by Celia Cohn RN at 03/01/2024 10:00 AM Author: Celia Cohn RN Service: -- Author Type: Registered Nurse Filed: 03/01/2024 3:23 PM Encounter Date: 03/01/2024 Status: Signed Catering And Events Manager: Celia Cohn RN (Registered Nurse) * Historical, Notes Results - 03/01/2024 10:00 AM EDT Pt arrives today for D1C47 of treatment and Zometa. Pt states she has been feeling well overall. RIGHT upper chest port accessed per protocol. Positive blood return noted. 1050 Zometa infusing over 20 minutes. Pt tolerating well. ?? 1120 Zometa infusion complete. Perjeta infusing. Pt tolerating well. Pt resting in chair watching tv. Call miller in reach. ?? 1200 Perjeta infusion complete. Trazimera up and running. Pt tolerating well. ?? 1240 Infusion complete. Pt tolerated well. Port deaccessed without difficutly. Appointment in placefor next treatment. Stable at discharge. Pt left unit with . documented in this encounter Plan of Treatment Upcoming Encounters Date Type Department Care Team (Late st Contact Info) Description 05/09/2025 9:00 AM EST Appointment [facility] [address] [place] [address] [address] [place] [address] 05/30/2025 9:15 AM EST Office Visit [facility] Hematology Oncology [address] [place] [phone] Manish Tamez MD [address] [place] [address] 06/01/2025 1:30 PM EST Ancillary Procedure [facility] [address] [place] [address] 07/20/2025 11:30 AM EDT Appointment [facility] Radiation Oncology [address] [place] [phone] Nicole Worley, KAYLEEN [address] [place] [address] documented as of this encounter Visit Diagnoses Not on filedocumented in this encounter Care Teams Realtime Court Reporter Relationship Specialty Start Date End Date Evan Peterson MD [address] [place] [address] PCP - General Internal Medicine 12/04/15 documented as of this encounter
--- OUTSIDE RECORDS SUMMARY | 2025-04-27 09:05 | XMS_ITS | Clinical Summary ---
Author Organization [facility] Address [address] [place] [phone] Phone Care Team Providers Care Agricultural Economist Name Role Phone Evan Peterson MD Primary Care Provider [phone] Allergies No known active allergies Medications clobetasoL (TEMOVATE) 0.05 % cream Apply 1 Application topically if needed. 024 Active lisinopriL (PRINIVIL,ZESTRIL ) 20 mg tablet 024 Active zoledronic acid (ZOMETA) 4 mg/100 mL piggyback 100 mL (4 mg total) every 3 (three) months. 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 60 tablet 2 025 Active ondansetron ODT (ZOFRAN-ODT) 8 mg disintegrating tablet Take 1 tablet (8 mg total) by mouth every 8 (eight) hours if needed for nausea or vomiting. 20 tablet 11 025 Active potassium chloride (KLOR-CON) 10 mEq CR tablet TAKE 1 TABLET BY MOUTH 2 TIMES A DAY. 180 tablet 1 025 Active megestroL (MEGACE) 400 mg/10 mL (40 mg/mL) suspensionIndicat ions:Weight loss,HER2-positiv e carcinoma of left breast (CMS/HCC V24, CMS/HCC V28),Malignant neoplasm metastatic to bone (CMS/HCC V24, CMS/HCC V28),Metastatic adenocarcinoma to liver (CMS/HCC V24, CMS/HCC V28) Take 20 mL (800 mg total) by mouth 1 (one) time each day. Shake well just before you measure a dose. Measure with a special dose-measuring spoon or medicine cup, not with a regular table spoon. If you do not have a dose-measuring device, ask your pharmacist for one. 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 TAKE IN THE MORNING WITH FOOD. 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 60 each 11 025 2025 Active hydrOXYzine pamoate (VISTARIL) 25 mg capsule TAKE 1 CAPSULE BY MOUTH 3 TIMES A DAY NEEDED FOR ITCHING. 90 capsule 1 025 Active hydrOXYzine pamoate (VISTARIL) 25 mg capsule TAKE 1 CAPSULE BY MOUTH 3 TIMES A DAY NEEDED FOR ITCHING. 024 2024 Discontinued Active Problems Problem Noted Date Diagnosed Date Hypokalemia 01/24/2025 Dental infection 10/04/2024 Chemotherapy-induced fatigue 06/14/2024 Diarrhea due to drug 06/14/2024 Dehydration 05/24/2024 Malignant neoplasm of overla pping sites of left breast in female, estrogen receptor negative 03/22/2024 HER2-positive carcinoma of left breast 4 Malignant neoplasm of overla pping sites of left female breast, unspecified estrogen receptor status 03/22/2024 Flexural atopic dermatitis 08/26/2023 Weight loss 04/11/2022 COVID-19 04/11/2022 Chemotherapy-induced peripheral neuropathy 03/23 Hypertension 02/13/2019 Metastatic adenocarcinoma to liver 10/06/2018 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 09/07/19 19 Malignant neoplasm metastatic to brain 9 Overview (01/29/2024): Inactive diagnosis replaced for August 2022 IMO Load Malignant neoplasm metastatic to bone 09/06/2018 Overview (01/29/2024): Inactive diagnosis replaced for August 2022 IMO Load Encounters Date Type Department Care Team Description 04/20/2025 8:58 AM EST - 04/20/2025 11:59 PM EST Hospital Encounter [facility] [address] [phone] Manish Valentin MD HER2-positive carcinoma of left breast (CMS/HCC V24, CMS/HCC V28) (Primary Dx); Dehydration Discharge Disposition: Home or Self Care 04/18/2025 9:15 AM EST Office Visit [facility] [address] [place] [phone] Manish Valentin MD 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 (CMS/HCC V24, CMS/HCC V28) (Primary Dx); Malignant neoplasm metastatic to bone (CMS/HCC V24, CMS/HCC V28); Malignant neoplasm metastatic to brain (CMS/HCC V24, CMS/HCC V28); Malignant neoplasm of overlapping sites of left female breast, unspecified estrogen receptor status (CMS/HCC V24, CMS/HCC V28); Metastatic adenocarcinoma to liver (CMS/HCC V24, CMS/HCC V28); Chemotherapy induced cardiomyopathy (CMS/HCC V24); Encounter for antineoplastic chemotherapy 04/18/2025 8:57 AM EST - 04/18/2025 11:59 PM EST Hospital Encounter [facility] [address] [place] [phone] Manish Valentin MD Malignant neoplasm of overlapping sites of left breast in female, estrogen receptor negative (CMS/HCC V24, CMS/HCC V28) (Primary Dx); Malignant neoplasm metastatic to bone (CMS/HCC V24, CMS/HCC V28); 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 (CMS/HCC V24, CMS/HCC V28); Malignant neoplasm metastatic to brain (CMS/HCC V24, CMS/HCC V28); Metastatic adenocarcinoma to liver (CMS/HCC V24, CMS/HCC V28); Malignant neoplasm of overlapping sites of left female breast, unspecified estrogen receptor status (CMS/HCC V24, CMS/HCC V28) Discharge Disposition: Home or Self Care 03/30/2025 8:57 AM EST - 03/30/2025 11:59 PM EST Hospital Encounter [facility] [address] [place] [phone] Manish Valentin MD HER2-positive carcinoma of left breast (CMS/HCC V24, CMS/HCC V28) (Primary Dx); Dehydration Discharge Disposition: Home or Self Care 03/28/2025 8:56 AM EST - 03/28/2025 11:59 PM EST Hospital Encounter [address] [phone] Manish Valentin MD Metastatic adenocarcinoma to liver (CMS/HCC V24, CMS/HCC V28) (Primary Dx); 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 (CMS/HCC V24, CMS/HCC V28); Malignant neoplasm metastatic to bone (CMS/HCC V24, CMS/HCC V28); Malignant neoplasm metastatic to brain (CMS/HCC V24, CMS/HCC V28); Malignant neoplasm of overlapping sites of left female breast, unspecified estrogen receptor status (CMS/HCC V24, CMS/HCC V28) Discharge Disposition: Home or Self Care 03/09/2025 8:54 AM EDT - 03/09/2025 11:59 PM EDT Hospital Encounter [facility] [address] [place] [phone] Manish Valentin MD HER2-positive carcinoma of left breast (CMS/HCC V24, CMS/HCC V28) (Primary Dx); Dehydration Discharge Disposition: Home or Self Care 03/07/2025 9:00 AM EDT Office Visit [facility] [address] [place] [phone] Manish Valentin MD Malignant neoplasm of overlapping sites of left breast in female, estrogen receptor negative (CMS/HCC V24, CMS/HCC V28) (Primary Dx); HER2-positive carcinoma of left breast (CMS/HCC V24, CMS/HCC V28); Hypokalemia; Dehydration; Malignant neoplasm metastatic to bone (CMS/HCC V24, CMS/HCC V28); Metastatic adenocarcinoma to liver (CMS/HCC V24, CMS/HCC V28); Malignant neoplasm metastatic to brain (CMS/HCC V24, CMS/HCC V28); Abnormal echocardiogram; 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 (CMS/HCC V24, CMS/HCC V28); Malignant neoplasm of overlapping sites of left female breast, unspecified estrogen receptor status (CMS/HCC V24, CMS/HCC V28) 03/07/2025 8:36 AM EDT - 03/07/2025 11:59 PM EDT Hospital Encounter [facility] [address] [place] [phone] Bebeto Louis MD Subramonia-Iye r, Subramony, MD Metastatic adenocarcinoma to liver (CMS/HCC V24, CMS/HCC V28) (Primary Dx); 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 (CMS/HCC V24, CMS/HCC V28); Malignant neoplasm metastatic to bone (CMS/HCC V24, CMS/HCC V28); Malignant neoplasm metastatic to brain (CMS/HCC V24, CMS/HCC V28); Malignant neoplasm of overlapping sites of left female breast, unspecified estrogen receptor status (CMS/HCC V24, CMS/HCC V28) Discharge Disposition: Home or Self Care 02/23/2025 Results Follow-Up [facility] [address] [place] [phone] [place] 02/17/2025 8:45 AM EDT - 02/17/2025 11:59 PM EDT Hospital Encounter [facility] PET Scan [address] [place] [phone] 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 (CMS/HCC V24, CMS/HCC V28); HER2-positive carcinoma of left breast (CMS/HCC V24, CMS/HCC V28) Discharge Disposition: Home or Self Care 02/16/2025 8:57 AM EDT - 02/16/2025 11:59 PM EDT Hospital Encounter [address] [phone] Bebeto Louis MD Subramonia-Iye r, Subramony, MD HER2-positive carcinoma of left breast (CMS/HCC V24, CMS/HCC V28) (Primary Dx); Dehydration Discharge Disposition: Home or Self Care 02/15/2025 12:30 PM EDT Ancillary Procedure [facility] [address] [place] [phone] Malignant neoplasm of overlapping sites of left breast in female, estrogen receptor negative (CMS/HCC V24, CMS/HCC V28); Chemotherapy induced cardiomyopathy (CMS/HCC V24); Encounter for antineoplastic chemotherapy 02/14/2025 8:53 AM EDT - 02/14/2025 11:59 PM EDT Hospital Encounter [address] [phone] Bebeto Louis MD Subramonia-Iye r, Subramony, MD Metastatic adenocarcinoma to liver (CMS/HCC V24, CMS/HCC V28) (Primary Dx); 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 (CMS/HCC V24, CMS/HCC V28); Malignant neoplasm metastatic to bone (CMS/HCC V24, CMS/HCC V28); Malignant neoplasm metastatic to brain (CMS/HCC V24, CMS/HCC V28); Malignant neoplasm of overlapping sites of left female breast, unspecified estrogen receptor status (CMS/HCC V24, CMS/HCC V28) Discharge Disposition: Home or Self Care 01/26/2025 8:21 AM EDT - 01/26/2025 11:59 PM EDT Hospital Encounter [address] [phone] Manish Valentin MD Dehydration (Primary Dx); HER2-positive carcinoma of left breast (CMS/HCC V24, CMS/HCC V28) Discharge Disposition: Home or Self Care from Last 3 Months Immunizations Immunization Administration Dates Next Due Influenza Quadravalent, MDCK , 0.5ml, preservative free (Flucelvax) 6mo and older 02/17/2022,02/28/2021 Influenza Quadravalent, shayy mbinant, 0.5ml, preservative free (Flublok) 18yo and older 03/10/2020 Influenza Quadrivalent, 0.5m l, preservative free (Fluarix; FluLaval; Fluzone) ages 6mo and older (Afluria) 3yo and older 02/11/2023 Influenza Quadrivalent, with preservative (Fluzone; Afluria) 6mo and older 02/15/2019,03/04/2017 Influenza trivalent, 0.5mL, preservative free (Fluarix; FluLaval; Fluzone) ages 6mo and older (Afluria) 3 years and older 02/24/2024 Surgical History Surgery Date Site/Laterality Comments PORTACATH PLACEMENT PROCEDURE:PORTACATH PLACEMENT Medical History Medical History Date Comments Metastatic cancer ([facility]/HCC V24, [facility] V28) DX:Metastatic cancer (HCC) Breast cancer ([facility]/HCC V24, [facility]/HCC V28) DX:Breast cancer (HCC) Diabetes mellitus (CMS/HCC V24, CMS/HCC V28) DX:Diabetes mellitus (HCC) Hypertension DX:Hypertension Cardiac disease DX:Cardiac disea se Skin cancer DX:Skin cancer Family History Relation Name Status Comments Father Social History Tobacco Use Types Packs/Day Years Used Date Smoking Tobacco: Former Smokeless Tobacco: Never Tobacco Cessation:Counseling Given: Not Answered Alcohol Use Standard Drinks/Week Comments Yes 0 (1 standard drink = 0.6 oz pur e alcohol) Comments Unknown Sex and Gender Information Value Date Recorded Sex Assigned at Female 03/14/2024 2:29 PM EST Legal Sex Female 2:32 AM EST Gender Identity Female 03/14/2024 2:29 PM EST Sexual Orientation Straight 05/24/2024 9: 56 AM EST Last Filed Vital Signs Vital Sign Reading Time Taken Comments Blood Pressure 144/69 04/20/2025 9:05 AM EST Pulse 50 04/20/2025 9:05 AM EST Temperature 35.9 C (96.6 F) 04/20/2025 9:05 AM EST Respiratory Rate 18 03/09/2025 9:00 AM EDT Oxygen Saturation 100% 04/20/2025 9:05 AM EST Inhaled Oxygen Concentration - - Weight 72.1 kg (159 lb) 04/18/2025 9:54 AM EST Height 167.6 cm (5' 6 ) 04/18/2025 9:21 AM EST Body Mass Index 25.66 04/18/2025 9:21 AM EST Plan of Treatment Upcoming Encounters Date Type Department Care Team (Late st Contact Info) Description 05/09/2025 9:00 AM EST Appointment [facility] [address] [facility] [address] [place] [phone] 05/30/2025 9:15 AM EST Office Visit [facility] [address] [place] [phone] Estelle-Manish Charlton MD [address] [place] [phone] 06/01/2025 1:30 PM EST Ancillary Procedure [facility] [address] [place] [phone] 07/20/2025 11:30 AM EDT Appointment [facility] [address] [place] [phone] Nicole Worley NP [address] [place] [address] Health Maintenance Due Date Last Done Comments Breast Cancer Screening 1961 Colorectal Cancer Screening: Colonoscopy 1961 DTaP,Tdap,and Td Vaccines (1 - Tdap) 1980 Pneumococcal Vaccine: 50+ Years (1 of 2 - PCV) 1980 Zoster Vaccines (1 of 2) 1980 Cervical Cancer Screening: Pap Smear 1982 RSV Immunization Adult Patients (1 - Risk 50-74 years 1-dose series) 08/01/2011 Cholesterol Screening (Lipid Panel) 04/13/2022 HIV Screening 04/13/2022 Hepatitis C Screening 04/13/2022 Medicare Annual Wellness Visit 04/13/2022 Social Influencers of Health Screening 04/13/2022 Depression Screening 05/11/2024 COVID-19 Vaccine (9 - Pfizer risk season) 2025 03/16/2025, 02/24/2024, 02/11/2023, Additional history exists Hypertension/CHF/CAD Annual BMP Blood Test 04/18/2026 04/18/2025, 03/28/2025, 03/07/2025, Additional history exists Influenza Vaccine Completed 03/16/2025, , 02/11/2023, Additional history exists HIB Vaccines Aged Out No longer eligi ble based on patient's age to complete this topic HPV Vaccines Aged Out No longer eligi ble based on patient's age to complete this topic Hepatitis A Vaccines Aged Out No long er eligible based on patient's age to complete this topic Hepatitis B Vaccines Aged Out No long er eligible based on patient's age to complete this topic IPV Vaccines Aged Out No longer eligi ble based on patient's age to complete this topic MMR Vaccines Aged Out No longer eligi ble based on patient's age to complete this topic Meningococcal ACWY Vaccine Aged Out N o longer eligible based on patient's age to complete this topic Meningococcal B Vaccine Aged Out No l onger eligible based on patient's age to complete this topic RSV Immunization Patients Under 20 months Aged Out No longer eligible based on patient's age to complete this topic Varicella Vaccines Aged Out No longer eligible based on patient's age to complete this topic Procedures Procedure Name Priority Date/Time Associated Diagnosis Comments CBC WITH AUTO DIFFERENTIAL STAT 04/18/2025 9:12 AM EST Malignant neoplasm of overlapping sites of left breast in female, estrogen receptor negative (CMS/HCC V24, CMS/HCC V28) COMPREHENSIVE METABOLIC PANEL STAT 04/18/2025 9:12 AM EST Malignant neoplasm of overlapping sites of left breast in female, estrogen receptor negative (CMS/HCC V24, CMS/HCC V28) CBC AND DIFFERENTIAL STAT 04/18/2025 9:12 AM EST Malignant neoplasm of overlapping sites of left breast in female, estrogen receptor negative (CMS/HCC V24, CMS/HCC V28) CANCER ANTIGEN 27-29 Routine 04/18/2025 9:12 AM EST Malignant neoplasm metastatic to bone (CMS/HCC V24, CMS/HCC V28) 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 (CMS/HCC V24, CMS/HCC V28) Malignant neoplasm metastatic to brain (CMS/HCC V24, CMS/HCC V28) Metastatic adenocarcinoma to liver (CMS/HCC V24, CMS/HCC V28) Malignant neoplasm of overlapping sites of left female breast, unspecified estrogen receptor status (CMS/HCC V24, CMS/HCC V28) CBC WITH AUTO DIFFERENTIAL STAT 03/28/2025 9:22 AM EST 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 (CMS/HCC V24, CMS/HCC V28) Malignant neoplasm metastatic to bone (CMS/HCC V24, CMS/HCC V28) Malignant neoplasm metastatic to brain (CMS/HCC V24, CMS/HCC V28) Malignant neoplasm of overlapping sites of left female breast, unspecified estrogen receptor status (CMS/HCC V24, CMS/HCC V28) Metastatic adenocarcinoma to liver (CMS/HCC V24, CMS/HCC V28) COMPREHENSIVE METABOLIC PANEL STAT 03/28/2025 9:22 AM EST 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 (CMS/HCC V24, CMS/HCC V28) Malignant neoplasm metastatic to bone (CMS/HCC V24, CMS/HCC V28) Malignant neoplasm metastatic to brain (CMS/HCC V24, CMS/HCC V28) Malignant neoplasm of overlapping sites of left female breast, unspecified estrogen receptor status (CMS/HCC V24, CMS/HCC V28) Metastatic adenocarcinoma to liver (CMS/HCC V24, CMS/HCC V28) CBC AND DIFFERENTIAL STAT 03/28/2025 9:22 AM EST 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 (CMS/HCC V24, CMS/HCC V28) Malignant neoplasm metastatic to bone (CMS/HCC V24, CMS/HCC V28) Malignant neoplasm metastatic to brain (CMS/HCC V24, CMS/HCC V28) Malignant neoplasm of overlapping sites of left female breast, unspecified estrogen receptor status (CMS/HCC V24, CMS/HCC V28) Metastatic adenocarcinoma to liver (CMS/HCC V24, CMS/HCC V28) CBC WITH AUTO DIFFERENTIAL STAT 03/07/2025 8:54 AM EDT 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 (CMS/HCC V24, CMS/HCC V28) Malignant neoplasm metastatic to bone (CMS/HCC V24, CMS/HCC V28) Malignant neoplasm metastatic to brain (CMS/HCC V24, CMS/HCC V28) Malignant neoplasm of overlapping sites of left female breast, unspecified estrogen receptor status (CMS/HCC V24, CMS/HCC V28) Metastatic adenocarcinoma to liver (CMS/HCC V24, CMS/HCC V28) COMPREHENSIVE METABOLIC PANEL STAT 03/07/2025 8:54 AM EDT 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 (CMS/HCC V24, CMS/HCC V28) Malignant neoplasm metastatic to bone (CMS/HCC V24, CMS/HCC V28) Malignant neoplasm metastatic to brain (CMS/HCC V24, CMS/HCC V28) Malignant neoplasm of overlapping sites of left female breast, unspecified estrogen receptor status (CMS/HCC V24, CMS/HCC V28) Metastatic adenocarcinoma to liver (CMS/HCC V24, CMS/HCC V28) CBC AND DIFFERENTIAL STAT 03/07/2025 8:54 AM EDT 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 (CMS/HCC V24, CMS/HCC V28) Malignant neoplasm metastatic to bone (CMS/HCC V24, CMS/HCC V28) Malignant neoplasm metastatic to brain (CMS/HCC V24, CMS/HCC V28) Malignant neoplasm of overlapping sites of left female breast, unspecified estrogen receptor status (CMS/HCC V24, CMS/HCC V28) Metastatic adenocarcinoma to liver (CMS/HCC V24, CMS/HCC V28) CANCER ANTIGEN 27-29 Routine 03/07/2025 8:54 AM EDT Malignant neoplasm metastatic to bone (CMS/HCC V24, CMS/HCC V28) 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 (CMS/HCC V24, CMS/HCC V28) Malignant neoplasm metastatic to brain (CMS/HCC V24, CMS/HCC V28) Metastatic adenocarcinoma to liver (CMS/HCC V24, CMS/HCC V28) Malignant neoplasm of overlapping sites of left female breast, unspecified estrogen receptor status (CMS/HCC V24, CMS/HCC V28) PET CT SKULL TO MID THIGH SUBSEQUENT Routine 02/17/2025 11:01 AM EDT 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 (CMS/HCC V24, CMS/HCC V28) HER2-positive carcinoma of left breast (CMS/HCC V24, CMS/HCC V28) TRANSTHORACIC ECHOCARDIOGRAM (TTE) COMPLETE STAT 02/15/2025 1:08 PM EDT Malignant neoplasm of overlapping sites of left breast in female, estrogen receptor negative (CMS/HCC V24, CMS/HCC V28) Chemotherapy induced cardiomyopathy (CMS/HCC V24) Encounter for antineoplastic chemotherapy CBC WITH AUTO DIFFERENTIAL Routine 02/14/2025 9:04 AM EDT 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 (CMS/HCC V24, CMS/HCC V28) Malignant neoplasm metastatic to bone (CMS/HCC V24, CMS/HCC V28) Malignant neoplasm metastatic to brain (CMS/HCC V24, CMS/HCC V28) Malignant neoplasm of overlapping sites of left female breast, unspecified estrogen receptor status (CMS/HCC V24, CMS/HCC V28) Metastatic adenocarcinoma to liver (CMS/HCC V24, CMS/HCC V28) COMPREHENSIVE METABOLIC PANEL Routine 02/14/2025 9:04 AM EDT 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 (CMS/HCC V24, CMS/HCC V28) Malignant neoplasm metastatic to bone (CMS/HCC V24, CMS/HCC V28) Malignant neoplasm metastatic to brain (CMS/HCC V24, CMS/HCC V28) Malignant neoplasm of overlapping sites of left female breast, unspecified estrogen receptor status (CMS/HCC V24, CMS/HCC V28) Metastatic adenocarcinoma to liver (CMS/HCC V24, CMS/HCC V28) CBC AND DIFFERENTIAL Routine 02/14/2025 9:04 AM EDT 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 WBC 4.4(L) 4.8 - 10.8 K/mcL LAB HEMETOLOGY METHOD 04/18/2025 9:34 AM [facility] RBC 3.10(L) 3.80 - 4.80 M/mcL LAB HEMETOLOGY METHOD 04/18/2025 9:34 AM [facility] Hemoglobin 10.1(L) 11.5 - 16.0 g/dL LAB HEMETOLOGY METHOD 04/18/2025 9:34 AM [facility] Hematocrit 30.5(L) 35.0 - 47.0 % LAB HEMETOLOGY METHOD 04/18/2025 9:34 AM [facility] MCV 97.8 79.0 - 98.0 FL LAB HEMETOLOGY METHOD 04/18/2025 9:34 AM [facility] MCH 32.4(H) 27.0 - 32.0 pcg LAB HEMETOLOGY METHOD 04/18/2025 9:34 AM [facility] MCHC 33.1 32.0 - 37.0 g/dL LAB HEMETOLOGY METHOD 04/18/2025 9:34 AM [facility] RDW 15.3(H) 11.0 - 15.0 % LAB HEMETOLOGY METHOD 04/18/2025 9:34 AM [facility] Platelets 206 130 - 400 K/mcL LAB HEMETOLOGY METHOD 04/18/2025 9:34 AM [facility] MPV 9.7 7.0 - 11.0 FL LAB HEMETOLOGY METHOD 04/18/2025 9:34 AM EST [facility] NRBC 0.0 <1.0 % LAB HEMETOLOGY METHOD 04/18/2025 9:34 AM [facility] NRBC Absolute 0.00 <0.10 K/mcL LAB HEMETOLOGY METHOD 04/18/2025 9:34 AM [facility] Neutrophils Relative 64.3 % LAB HEMETOLOGY METHOD 04/18/2025 9:34 AM [facility] Lymphocytes Relative 22.0 % LAB HEMETOLOGY METHOD 04/18/2025 9:34 AM [facility] Monocytes Relative 10.0 % LAB HEMETOLOGY METHOD 04/18/2025 9:34 AM [facility] Eosinophils Relative 2.3 % LAB HEMETOLOGY METHOD 04/18/2025 9:34 AM [facility] Basophils Relative 0.5 % LAB HEMETOLOGY METHOD 04/18/2025 9:34 AM [facility] [facility] Immature Granulocytes Relative 0.9 % LAB HEMETOLOGY METHOD 04/18/2025 9:34 AM [facility] Neutrophils Absolute 2.84 1.50 - 7.00 K/mcL LAB HEMETOLOGY METHOD 04/18/2025 9:34 AM [facility] Lymphocytes Absolute 0.97(L) 1.00 - 5.00 K/mcL LAB HEMETOLOGY METHOD 04/18/2025 9:34 AM [facility] Monocytes Absolute 0.44 0.20 - 1.00 K/mcL LAB HEMETOLOGY METHOD 04/18/2025 9:34 AM [facility] Eosinophils Absolute 0.10 0.00 - 0.50 K/mcL LAB HEMETOLOGY METHOD 04/18/2025 9:34 AM [facility] Basophils Absolute 0.02 0.00 - 0.20 K/mcL LAB HEMETOLOGY METHOD 04/18/2025 9:34 AM [facility] Immature Granulocytes Absolute 0.04(H) 0.00 - 0.03 K/mcL LAB HEMETOLOGY METHOD 04/18/2025 9:34 AM EST [facility] Blood Blood sample taken from central line / Unknown Existing Catheter / Unknown 04/18/2025 9:12 AM EST 04/18/2025 9:29 AM EST us Manish Tamez MD LAB BLOOD ORDERABLE S Final Result [facility] [address] [place] [address], * Cancer antigen 27-29 (04/18/2025 9:12 AM EST) Only the most recent of2 resultswithin the time period is included. CA 27.29 <17.5 <38.6 U/mL 04/20/2025 12:05 PM EST [facility] Comment: The Siemens [employer] Trans[employer]atheter [employer] [id number] Chemiluminescent Immunoassay is used. Results obtained with different assay methods or kits cannot be used interchangeably. Results cannot be interpreted as absolute evidence of the presence or absence of malignant disease. Test performed at [facility], [address] , [place], [place] [id number] Fadumo Sinclair MD, PhD - [employer]ile Power Shear Operator Blood Blood sample taken from central line / Unknown Existing Catheter / Unknown 04/18/2025 9:12 AM EST 04/18/2025 9:29 AM EST us Manish Tamez MD LAB BLOOD ORDERABLE S Final Result [facility] [address] [place], [place] [id number] * (ABNORMAL) Comprehensive metabolic panel (04/18/2025 9:12 AM EST) Only the most recent of4 resultswithin the time period is included. Sodium 145 133 - 145 mmol/L 04/18/2025 10:05 AM [facility] Potassium 3.2(L) 3.5 - 5.5 mmol/L 04/18/2025 10:05 AM [facility] Chloride 107 96 - 110 mmol/L 04/18/2025 10:05 AM [facility] CO2 30 21 - 32 mmol/L 04/18/2025 10:05 AM [facility] Anion Gap 8 3 - 11 04/18/2025 10:05 AM [facility] Glucose 95 70 - 100 mg/dL 04/18/2025 10:05 AM [facility] BUN 14 5 - 25 mg/dL 04/18/2025 10:05 AM [facility] Creatinine 0.72 0.50 - 1.10 mg/dL 04/18/2025 10:05 AM [facility] eGFR 94 >=60 mL/min/1. 73m2 04/18/2025 10:05 AM [facility] Comment:Calculation based on the Chronic Kidney Disease Epidemiology Collaboration (CKD-EPI) equation refit without adjustment for race. BUN/Creatinine Ratio 19.4 04/18/2025 10:05 AM [facility] Calcium 8.5 8.5 - 10.5 mg/dL 04/18/2025 10:05 AM [facility] AST (SGOT) 20 10 - 42 unit/L 04/18/2025 10:05 AM [facility] ALT (SGPT) 24 10 - 60 unit/L 04/18/2025 10:05 AM [facility] Alkaline Phosphatase 71 42 - 121 unit/L 04/18/2025 10:05 AM [facility] Total Protein 5.7(L) 6.0 - 8.0 g/dL 04/18/2025 10:05 AM [facility] Albumin 3.7 3.2 - 5.0 g/dL 04/18/2025 10:05 AM EST [facility] Total Bilirubin 0.6 0.0 - 1.4 mg/dL 04/18/2025 10:05 AM EST [facility] Blood Blood sample taken from central line / Unknown Existing Catheter / Unknown 04/18/2025 9:12 AM EST 04/18/2025 9:29 AM EST us Manish Tamez MD LAB BLOOD ORDERABLE S Final Result [facility] [address] [place] [address], * PET CT Skull to Mid Thigh Subsequent (02/17/2025 11:01 AM EDT) Anatomical Region Laterality Modality Body Radiographic Jazmyn ging 02/23/2025 11:5 1 AM EDT Impressions 02/23/2025 12:05 PM EDT Similar to mild interval reduction of metabolic activity along left breast mass as well as manubrial and sternal lesions. No new foci of metastatic disease. -------- FINAL REPORT -------- Dictated By: Luiza Murphy Dictated Date: 02/23/2025 11:51 ET Assigned Physician: Luiza Murphy Reviewed and Electronically Signed By: Luiza Murphy Signed Date: 02/23/2025 12:05 ET Workstation ID: [id number] Transcribed By: Self Edit Transcribed Date: 02/23/2025 11:51 ET Narrative 02/23/2025 12:05 PM EDT INDICATION: Breast carcinoma, subsequent treatment strategy Prior relevant studies: Multiple August 26, 2024. Radiopharmaceutical: 11.8 mCi of F-18 FDG IV. Blood glucose: 127 mg/dl. PROCEDURE: Routine body FDG PET-CT imaging was performed from the skull base to the mid thighs and reconstructed in axial, coronal, and sagittal planes at the computer workstation with fused data from both the PET imaging study and attenuation correction CT. The CT portion of the examination was done strictly for attenuation correction and is not a true diagnostic CT examination. CTDI: 8.59 mGy FINDINGS: HEAD AND NECK: No abnormal FDG activity. THORAX: No abnormal FDG activity. BREAST: Mild residual left breast activity with SUV max of 3.1, previously 3.7. ABDOMEN/PELVIS: No abnormal FDG activity. MUSCULOSKELETAL: FDG avid left manubrial and sternal activity with SUV max of 4.1 within the manubrium, previously 4.5, and 6.2 along the sternum, previously 6.8. Mild focal activity along sclerotic focus within the right iliac bone with SUV max of 3.4, previously 3.2. New focus of FDG activity associated with focal skin thickening along the midline of the lower anterior pelvis with SUV max of 4.4 likely representing focal infectious/inflammatory changes. Procedure Note Luiza Murphy MD - 02/23/2025 INDICATION: Breast carcinoma, subsequent treatment strategy Prior relevant studies: Multiple August 26, 2024. Radiopharmaceutical: 11.8 mCi of F-18 FDG IV. Blood glucose: 127 mg/dl. PROCEDURE: Routine body FDG PET-CT imaging was performed from the skullbase to the mid thighs and reconstructed in axial, coronal, and sagittalplanes at the computer workstation with fused data from both the PETimaging study and attenuation correction CT. The CT portion of theexamination was done strictly for attenuation correction and is not a truediagnostic CT examination. CTDI: 8.59 mGy FINDINGS: HEAD AND NECK: No abnormal FDG activity. THORAX: No abnormal FDG activity. BREAST: Mild residual left breast activity with SUV max of 3.1, previously3.7. ABDOMEN/PELVIS: No abnormal FDG activity. MUSCULOSKELETAL: FDG avid left manubrial and sternal activity with SUV maxof 4.1 within the manubrium, previously 4.5, and 6.2 along the sternum,previously 6.8. Mild focal activity along sclerotic focus within the right iliac bone withSUV max of 3.4, previously 3.2. New focus of FDG activity associated with focal skin thickening along themidline of the lower anterior pelvis with SUV max of 4.4 likelyrepresenting focal infectious/inflammatory changes. IMPRESSION: Similar to mild interval reduction of metabolic activity along left breastmass as well as manubrial and sternal lesions. No new foci of metastaticdisease. -------- FINAL REPORT -------- Dictated By: Luiza Murphy Dictated Date: 02/23/2025 11:51 ET Assigned Physician: Luiza Murphy Reviewed and Electronically Signed By: Luiza Murphy Signed Date: 02/23/2025 12:05 ET Workstation ID: [id number] Transcribed By: Self Edit Transcribed Date: 02/23/2025 11:51 ET us Subramony Subramonia-Zoltan RAHMAN IMG NM PROCEDURES F inal Result * TRANSTHORACIC ECHOCARDIOGRAM (TTE) COMPLETE (02/15/2025 1:08 PM EDT) Left Atrium Minor [place]canso 5.4 cm CV PACS Left Atrium Major [place] 5.2 cm CV PACS LA Area Sys (A2C) 16 cm2 CV PACS LA Area Sys (A4C) 16 cm2 CV PACS LA Volume (BP) 41 mL CV PACS RA Area 11.9 cm2 CV PACS RA 2D Volume 23 mL CV PACS Aortic Sinus Valsalva 2.8 cm CV PACS Ascending Aorta 3.5 cm CV PACS IVSD 0.7 0.6 - 0.9 cm CV PACS LVIDD 4.1 3.8 - 5.2 cm CV PACS LVIDS 2.7 2.2 - 3.5 cm CV PACS LVOT Diameter 2.1 cm CV PACS LVPWD 0.7 0.6 - 0.9 cm CV PACS MV E' Tissue Velocity Lateral 10 cm/s CV PACS MV E' Tissue Velocity Septal 7 cm/s CV PACS LVOT Area 3.5 cm2 CV PACS MV Deceleration Brooks 6.7 m/s2 CV PACS E Wave Deceleration Time 130 119 - 242 ms CV PACS MV PHT 38 ms CV PACS MV Peak A Lazaro 0.64 m/s CV PACS MV Peak E Lazaro 0.87 m/s CV PACS MV Area PHT 5.8 cm2 CV PACS PV Acceleration Time 67 ms CV PACS PV Acceleration Time 67 ms CV PACS RV Diastolic Basal Dimension 3.4 2.5 - 4.1 cm CV PACS RV S' 12 cm/s CV PACS TAPSE 21 mm CV PACS TR Peak Velocity 2.50 m/s CV PACS TR Peak Gradient 25 mmHg CV PACS E/E' Ratio Septal 12 CV PACS E/E' Ratio Averaged 11 CV PACS Relative Wall Thickness ratio 0.34 CV PACS FS 34 % CV PACS LV Mass 2D 82 g CV PACS Ascending Aorta Index 1.91 cm/m2 CV PACS RA 2D Volume Index 13 mL/m2 CV PACS LVIDD Index 2.24 cm/m2 CV PACS LVIDS Index 1.48 cm/m2 CV PACS E/A Ratio 1.4 CV PACS E/E' Ratio Lateral 9 CV PACS LA Volume Index (BP) 22 mL/m2 CV PACS LV Mass Index 2D 45 g/m2 CV PACS BSA 1.86 m2 CV PACS Right Ventricular Peak Systolic Pressure 28 mmHg CV PACS Est. RA Pressure 3 mmHg CV PACS Anatomical Region Laterality Modality Ultrasound Narrative 02/16/2025 10:29 AM EDT Left ventricle cavity size is normal. Wall thickness is normal. Systolic function is normal with an ejection fraction of 55-60%. There are no regional LV wall motion abnormalities. GLS is -19% No hemodynamically significant valvular dysfunction Compared to the prior study there is no significant change Left Ventricle Left ventricle cavity size is normal. Wall thickness is normal. Systolic function is normal with an ejection fraction of 55-60%. There are no regional LV wall motion abnormalities. There is no diastolic dysfunction. Global longitudinal strain is -19.0% Right Ventricle Right ventricle cavity appears normal. Systolic function is normal. Left Atrium Left atrium cavity size is normal. Right Atrium Right atrium cavity is normal. IVC/SVC Inferior vena cava structure is normal. RA pressures is estimated to be 3 mmHg (IVC diameter <21 mm and decreases >50% during inspiration). Mitral Valve Mitral valve structure is normal. There is mild annular calcification. There is trace regurgitation. There is no evidence of mitral valve stenosis. Tricuspid Valve The leaflets exhibit normal excursion. There is mild regurgitation. The RVSP is estimated at 28 mmHg. Aortic Valve The aortic valve is trileaflet. The leaflets are mildly thickened. There is no regurgitation or stenosis. Pulmonic Valve Visualized portions of the pulmonic valve appear normal. There is trace pulmonic valve regurgitation. Ascending Aorta The aorta appears normal in size. Pericardium There is a trivial pericardial effusion. Study Details Overall the study quality was technically difficult. Additional technique includes myocardial strain. Patient declined use of left ventricular opacification agent to enhance imaging. Study was difficult due to: poor endocardial visualization. Manish Tamez MD CV ECHO PROCEDURES Final Result from Last 3 Months Insurance MEDICARE [facility] Care Teams Agricultural Economist Relationship Specialty Start Date End Date Evan Peterson MD [id number] [place] [address] PCP - General Internal Medicine 12/04/15
--- OUTSIDE RECORDS SUMMARY | 2025-04-27 09:05 | XMS_ITS | Clinical Summary ---
Author Organization [facility] Prior to 10/08/[address] [place] [id number] Care Team Providers Care Neonatal Pediatric Nurse Name Role Phone Evan Peterson MD Primary Care Provider + Allergies No known active allergies Medications Medication Sig Dispensed Refills Start Date End Date Status lisinopril (PRINIVIL,ZESTRIL) tablet 10 mg Take 2 tablets (20 mg total) by mouth daily. 0 Active TRASTUZUMAB IV Inject into the vein every 21 days. 0 Active pertuzumab (PERJETA) 420 MG/14ML SOLN injection Inject into the vein every 21 days. 0 Active hydroCHLOROthiazide (HYDRODIURIL) tablet 25 mg Take 1 tablet (25 mg total) by mouth daily. 0 03/22/2021 Active zoledronic acid (ZOMETA) 4 MG/100ML SOLN IVPB 4 mg iv over 30 minutes every 6 weeks 100 mL 8 04/10/2021 Active Cholecalciferol (VITAMIN D3 PO) Take 2,000 Units by mouth daily. 0 Active fluticasone (FLONASE) 50 MCG/ACT nasal spray spray/apply 1 spray in each nostril daily. 0 Active anastrozole (ARIMIDEX) 1 MG crushed tab Take 1 tablet (1 mg total) by mouth daily. 0 Active senna-docusate (PERICOLACE) 8.6-50 MG Take 2 tablets by mouth daily as needed for constipation. 60 tablet 1 05/23/2022 Active ondansetron (ZOFRAN-ODT) 8 MG disintegrating tablet TAKE 1 TABLET BY MOUTH EVERY 8 HOURS NEEDED FOR NAUSEA 15 tablet 11 02/18/2023 Active clobetasol (TEMOVATE) 0.05 % cream Apply topically 2 (two) times a day. 60 g 5 08/26/2023 Active predniSONE (DELTASONE) tablet 20 mg Take 1 tablet (20 mg total) by mouth daily. 7 tablet 0 08/26/2023 Active hydrOXYzine (VISTARIL) 25 MG capsule TAKE 1 CAPSULE BY MOUTH 3 TIMES A DAY NEEDED FOR ITCHING. 90 capsule 1 12/15/2023 Active amLODIPine (NORVASC) tablet 2.5 mg TAKE 1 TABLET BY MOUTH EVERY DAY 90 tablet 0 02/03/2024 Active chlorhexidine (HIBICLENS) 4 % external liquid Apply topically daily as needed. 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 09/07/19 19 Malignant neoplasm metastatic to bone 09/06/2018 Overview: Inactive diagnosis replaced for August 2022 IMO Load Malignant neoplasm of overla pping sites of left breast in female, estrogen receptor negative 01/21/2017 Cancer Staging:Clinical stage from 11/28/2015:Stage IV(cT4b, cN3c, cM1, G3, ER-, [place]-, HER2+) - Signed by Jovi Amaral MD on 09/21/2021 Family History Relation Name Status Comments Father Social History Tobacco Use Types Packs/Day Years Used Date Smoking Tobacco: Former Smokeless Tobacco: Never Alcohol Use Standard Drinks/Week Comments Yes 0 (1 standard drink = 0.6 oz pur e alcohol) occassionaly Sex and Gender Information Value Date Recorded Sex Assigned at Female 11/20/2021 10:31 AM EDT Gender Identity Female 11/20/2021 10:31 AM EDT Sexual Orientation Straight 11/20/2021 10 :31 AM EDT Job Start Date Occupation Industry Not on file Not on file Not on file Last Filed Vital Signs Vital Sign Reading Time Taken Comments Blood Pressure 134/74 03/01/2024 10:00 AM EDT Pulse 66 03/01/2024 10:00 AM EDT Temperature 37.1 C (98.8 F) 03/01/2024 10:00 AM EDT Respiratory Rate 18 03/01/2024 10:00 AM EDT Oxygen Saturation 100% 03/01/2024 10:00 AM EDT Inhaled Oxygen Concentration - - Weight 85.9 kg (189 lb 6.4 oz) 03/01/2024 10:00 AM EDT Height 167.6 cm (5' 6 ) 03/01/2024 10:00 AM EDT Body Mass Index 30.57 03/01/2024 10:00 AM EDT Plan of Treatment Health Maintenance Due Date Last Done Comments Hepatitis C Screening 1961 COVID-19 Vaccine (#1) 1966 Pneumococcal Vaccine (1 of 2 - PCV) 08/01/1967 Depression Screening 1973 BMI Counseling 08/01/1979 Preventative Health Evaluation 08/01/1979 DTap / Tdap / Td (1 - Tdap) 1980 Shingrix-Zoster Vaccine (1 of 2) 1980 Cervical Cancer Screening (P ap Smear) 1982 Colon Cancer Screening (Colonoscopy) 2006 Breast Cancer Screening (Mammogram) 08/01/2011 Influenza Vaccine (#1) 2025 RSV Adult > 60+ Yrs or Pregn ant (1 - 1-dose 75+ series) 2036 Hepatitis B Vaccines Aged Out No long er eligible based on patient's age to complete this topic RSV Ped < 20 months Aged Out No longe r eligible based on patient's age to complete this topic Care Teams Neonatal Pediatric Nurse Relationship Specialty Start Date End Date Evan Peterson MD [address] [place] [address] Dr [address] [place] [phone] PCP - General Internal Medicine 03/28/22
--- OUTSIDE RECORDS SUMMARY | 2025-04-27 09:05 | XMS_ITS ---
Author Organization [facility] Address [address] [place] [address] Phone Care Team Providers Care Supervisor Ke[employer]od[employer] Name Role Phone Evan Peterson MD Primary Care Provider +1- [phone] Active Problems Problem Noted Date Diagnosed Date Hypokalemia 01/24/2025 Dental infection 10/04/2024 Chemotherapy-induced fatigue 06/14/2024 Diarrhea due to drug 06/14/2024 Dehydration 05/24/2024 Malignant neoplasm of overla pping sites of left breast in female, estrogen receptor negative 03/22/2024 HER2-positive carcinoma of left breast Malignant neoplasm of overla pping sites of [...] diagnosis replaced for August 2022 IMO Load Current Treatment and Therapy Plans Fam-trastuzumab deruxtecan-nxki ( 5.4 mg/kg )* Plan Start Date:05/24/2024 Plan Provider:Manish Tamez MD Linked Problems 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 (CMS/HCC V24, CMS/HCC V28)Malignant neoplasm metastatic to bone (CMS/HCC V24, CMS/HCC V28)Malignant neoplasm metastatic to brain (CMS/HCC V24, CMS/HCC V28)Malignant neoplasm of overlapping sites of left female breast, unspecified estrogen receptor status (CMS/HCC V24, CMS/HCC V28)Metastatic adenocarcinoma to liver (CMS/HCC V24, CMS/HCC V28) Treatment Medications Current Day (Day 1 , Cycle 16 - Planned for 05/09/2025) Next Day (Day 1, Cycle 17 - Planned for 05/30/2025) fam-trastuzumab deruxtecan-nxki (ENHERTU)fam-trastuzumab deruxtecan-nxki (ENHERTU) chemo IVPB fam-trastuzumab deruxtecan-nxki (ENHERTU) 400 mg in dextrose 120 mL chemo IVPB fam-trastuzumab deruxtecan-nxki (ENHERTU) chemo IVPB HYDRATION AND ELECTROLYTES* Plan Start Date:06/02/2024 Plan Provider:Manish Tamez MD Linked Problems DehydrationHER2-positive car cinoma of left breast (CMS/HCC V24, CMS/HCC V28) Treatment Medications No medications scheduled. ZOLEDRONIC ACID ( ZOMETA ) EVERY 12 WEEKS* Plan Start Date:08/02/2024 Plan Provider:Manish Tamez MD Linked Problems Malignant neoplasm metastati c to bone (CMS/HCC V24, CMS/HCC V28) Treatment Medications No medications scheduled. Past Treatment and Therapy Plans Oncology Treatment Plan Name Start Date Discontinue Date Treatment Medications Discontinue Reason Plan Provider Cycles Pertuzumab + Trastuzumab + PACLitaxel Weekly 4 05/24/2024 pertuzumab (PERJETA) chemo IVPBtrastuzuma b-qyyp (TRAZIMERA) chemo IVPB (420 mg vial)trastuzum ab-qyyp biosimilar (TRAZIMERA) Progressive Disease Manish mcnamara MD 6 of 9 cycles started
--- OUTSIDE RECORDS SUMMARY | 2025-04-27 09:05 | XMS_ITS ---
Author Organization [facility] Prior to 10/08/[address] [place] [id number] Care Team Providers Care Machine Ceramic Coater Name Role Phone Evan Peterson MD Primary Care Provider + Active Problems Problem Noted Date Diagnosed Date [...] from 11/28/2015:Stage IV(cT4b, cN3c, cM1, G3, ER-, [place]-, HER2+) - Signed by Jovi Amaral MD on 09/21/2021 Current Oncology Plans [facility] DDAC, FOLLOWED BY WEEKLY PACLITAXEL X 12 + (TRASTUZUMAB + PERTUZUMAB EVERY 3 WEEKS X 4 ,FOLLOWED BY TRASTUZUMAB + PERTUZUMAB X1 YEAR* Plan Start Date:10/08/2021 Plan Provider:Manish Noriega MD Linked Problems Malignant neoplasm of overla pping sites of left breast in female, estrogen receptor negative (HCC)Malignant neoplasm metastatic to brain (HCC)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9 %sodium chloride 0.9% bolus (NS)TRASTUZUMAB INFUSIONtrastuzumab-qyyp (TRAZIMERA) infusion albuterol (PROVENTIL) nebulizer solution 2.5 mgdiphenhydrAMINE (BENADRYL) injection 50 mgEPINEPHrine (Anaphylaxis) (ADRENALIN) 1 mg/ml (1:1000) inj amp/vial 0.3 mgfamotidine (PEPCID) 20 mg in water for injection, sterile 5 mL Injectionhydrocortisone sodium succinate (Solu-CORTEF) injection (PF) 100 mgmeperidine (DEMEROL) 25 MG/ML injection 25 mgpertuzumab (PERJETA) 420 mg in sodium chloride (NS) 0.9 % 250 mL Hazardous IVPBSaline Flush 0.9 % injection 1 Syringesodium chloride 0.9% (NS) infusionsodium chloride 0.9% bolus (NS) 500 mLtrastuzumab-qyyp (TRAZIMERA) 520 mg in sodium chloride (NS) 0.9 % 250 mL infusion albuterol (PROVENTIL) nebulizer solution 2.5 mgdiphenhydrAMINE (BENADRYL) injection 50 mgEPINEPHrine (Anaphylaxis) (ADRENALIN) 1 mg/ml (1:1000) inj amp/vial 0.3 mgfamotidine (PEPCID) 20 mg in water for injection, sterile 5 mL Injectionhydrocortisone sodium succinate (Solu-CORTEF) injection (PF) 100 mgmeperidine (DEMEROL) 25 MG/ML injection 25 mgpertuzumab (PERJETA) 420 mg in sodium chloride (NS) 0.9 % 250 mL Hazardous IVPBSaline Flush 0.9 % injection 1 Syringesodium chloride 0.9% (NS) infusionsodium chloride 0.9% bolus (NS) 500 mLtrastuzumab-qyyp (TRAZIMERA) 520 mg in sodium chloride (NS) 0.9 % 250 mL infusion [facility] ZOLEDRONIC ACID (ZOMETA)* Plan Start Date:10/30/2021 Plan Provider:Bebeto Louis MD Linked Problems Malignant neoplasm metastati c to bone (HCC) Treatment Medications Saline Flush 0.9 %sodium chl oride (NS) 0.9 %zoledronic acid (ZOMETA) Past Plans ONCOLOGY TREATMENT Plan Name Start Date Discontinue Date Treatment Medications Discontinue Reason Plan Provider Cycles [facility]ERT[facility] / TRASTUZUMAB / PACLITAXEL 10/09/2021 10/09/2021 albuterol (PROVENTIL)diph enhydrAMINE (BENADRYL)EPINE PHrinefamotidin e (PEPCID)hydroco rtisone (SOLU-CORTEF) IVmeperidine (DEMEROL) 25 MG/MLpertuzumab -trastuzumab-hy aluronidase-zzx f (PHESGO) 60-60-2000 MG-MG-U/MLSalin e Flush 0.9 %sodium chloride 0.9% bolus (NS) Entered in error Bebeto Louis MD Treatment not started Radiation Treatments * No radiation treatments are documented for this patient in [facility]. Treatments may have been administered in another system.
--- OUTSIDE RECORDS SUMMARY | 2025-04-27 09:05 | XMS_ITS | Encounter Summary ---
Author Organization [facility] Address [address] [place] [address] Care Team Providers Care Leak Operator [employer]affin Plant Name Role Phone Evan Peterson MD Primary Care Provider +1- [phone] Encounter Details Date Type Department Care Team (Late Contact Info) Description 02/23/2025 Results Follow-Up [facility] Hematology Oncology [address] [place] [phone] Meagan Denney MA Social History Tobacco Use Types Packs/Day Years [...] Info) Description 05/09/2025 9:00 AM EST Appointment [facility] Infusion Center [address] [place] [phone] 05/30/2025 9:15 AM EST Office Visit [facility] Hematology Oncology [address] [place] [phone] Manish Tamez MD [address] [place] [phone] 06/01/2025 1:30 PM EST Ancillary Procedure [facility] [address] [place] [address] 07/20/2025 11:30 AM EDT Appointment [facility] Radiation Oncology [address] [place] [phone] Nicole Worley NP [address] [place] [address] documented as of this encounter Visit Diagnoses Not on filedocumented in this encounter Care Teams Leak Operator [employer]affin Plant Relationship Specialty Start Date End Date Evan Peterson MD [address] [place] [address] PCP - General Internal Medicine 12/04/15 documented as of this encounter
--- NOTE | 2025-04-27 09:15 | A.OFFPC_ITS ---
Vital Signs 04/27/25 09:18 Height 5 ft 6.5 in Weight 157 lb 8 oz BMI 25.0 BP 120/78 Blood Pressure Location Lt brachial Position Sitting Pulse 69 Pulse Source Pulse Oximeter Temp 97.1 F Temp Source Temporal Artery Scan Pulse Oximetry (%) 100 Oxygen Delivery Method Room Air Intake Visit Reasons: 6mth Follow Up Intake Note: Patient is here to follow up on HTN. Collision Center Manager Required: No Data Architect Manager: Not Required per policy Accompanied by: Self / Same As Patient Allergies No Known Allergies Allergy (Verified 04/27/25 09:47) Medication List - Last Reconciled 04/27/25 by Evan Peterson MD carvedilol 3.125 mg PO DAILY lisinopril 20 mg PO DAILY 90 days Tobacco use date assessed: 04/27/25 Dental Screening Dental Screen Date: 10/27/24 HPI HPI Comments History of Present Illness Details History of Present Illness - The patient is a 64-year-old female pr esenting for a follow-up visit. - She has a history of breast cancer and has been undergoing chemotherapy treatment since last May. - She reports good results from her onco logist, with recent MRI and PET scans noted as really good, leading to a change in scan frequency from every 3 months to every 4 months. - Associated with her chemotherapy, she experiences significant fatigue for the first couple of weeks after treatment, which improves during the last week of the cycle. - She also reports variable bowel moveme nts but has effective medications for both constipation and diarrhea. - She denies any leaking. - For health maintenance, the patient carroll s received her flu and COVID-19 vaccinations. - Her last colon cancer screening was a Cologuard test, which was normal. - She no longer undergoes mammograms as surveillance is done via PET and CT scans. - Her current medications include lisino pril and carvedilol, both taken once daily. Social History - The patient has two sons; one lives in [place] and the other is in the [place]. Results - Labs: Blood work from May 12 show ed good kidney and liver functions. - Imaging: Recent MRI and PET scan resul ts were good. - Cardiology: A recent echocardiogram wa s good. - Screening: Her last Cologuard test was normal. [facility] Medical History Stage IV breast cancer in female Essential (primary) hypertension Surgical History History of brain surgery Social History Housing: House Alcohol intake: current Alcohol intake frequency: holidays/special occasions only Patient Tobacco Use Status: Former Tobacco user e-Cigarette/Vaping Use: Never Used Second Hand Smoke Exposure: Yes service: No Current occupational status: disabled Cognitive needs: Yes (walker/cane) Hearing needs: No Vision needs: Yes (glasses) Questionnaire Thrive Questionnaire Date Thrive assessed: 10/22/24 What is your living situation today?: I have a steady place to live Within the past 12 months, did the food you bought not last and you didn't have the money to get more?: Never true Within the past 12 months, did you worry whether your food would run out before you got money to buy more?: Never true Do you have trouble paying for medicines?: No Do you have trouble getting transportation to medical appointments?: No Do you have trouble paying your heating and electricity bill?: No Do you have trouble taking care of your child, family member or friend?: No Do you have trouble with day-to-day activities such as bathing, preparing meals, shopping, managing finances, etc.?: No Are you currently unemployed and looking for a job?: No Are you interested in more education?: No Please select the resources that you would like help with: None Currently or been in a relationship where the following occur: No concerns reported THRIVE Score: 0 PRITI-7 AMB Questionnaire PRITI-7 Date PRITI - 7 assessed: 10/27/24 Source: Developed by Drs. Piotr Catherine, Blanca Parekh, Sal Avila and colleagues, with an educational rosana from [employer]. Review of Systems Narrative Review of Systems - Constitutional: Reports significant fatigue for the first two weeks after chemotherapy. - Gastrointestinal: Reports alternating constipation and diarrhea, which is managed with medication. Physical exam (Primary Care) Vital Signs: Last Vital Signs Temp 97.1 F 04/27/25 09:18 Pulse 69 04/27/25 09:18 BP 120/78 04/27/25 09:18 Pulse Ox 100 04/27/25 09:18 Oxygen Delivery Method Room Air 04/27/25 09:18 BMI result Body Mass Index 25.0 Tobacco/Smoking Status: Tobacco use Status Tobacco use date assessed 04/27/25 04/27/25 09:21 Patient Tobacco Use Status Former Tobacco user 04/27/25 09:15 e-Cigarette/Vaping Use Never Used 04/27/25 09:15 Thrive Assessment: Date of Thrive Assessment Date Thrive assessed 10/22/24 04/27/25 09:15 Currently or been in a relationship where the following occur: No concerns reported Narrative Physical Exam General: Cooperative and healthy appearing Nutritional Appearance: Well nourished Orientation/consciousness: Patient oriented x3 Limitations: No limitations Head: Normal to inspection General: Appearance normal, both eyes and all related structures Neck: Normal visual inspection Chest: Normal palpation of entire chest wall Respiratory: Normal respiratory effort Neurology: Patient oriented x3 Coding Level of Care Code Est Pt Level 4 (84756) Add On Problem Visit Only Diagnoses Stage IV breast cancer in female C50.919 Assessment & Plan Assessment & Plan (1) Stage IV breast cancer in female: Code(s): C50.919 - Malignant neoplasm of unspecified site of unspecified female breast Category: Medical Plan Plan - Breast Cancer: The patient will continue with her current chemotherapy regimen and follow-up with her oncologist at [facility]. - Hypertension: The patient will continue lisinopril and carvedilol once daily. - Health Maintenance: The patient will request her oncologist to add a thyroid- stimulating hormone (TSH) level to her next blood work on the 30th of the month. - Follow-up: The patient will return for a follow-up visit in 6 months. Discussion Notes I reviewed the patient's recent oncology results, noting her good MRI and PET scans, which have allowed for extending her scan interval to every 4 months. We discussed side effects from her chemotherapy, including fatigue and variable bowel habits, which she is managing effectively. I noted that her routine lab work does not include thyroid function tests and advised her to ask her oncologist to add a TSH level to her next blood draw. I informed her that if her oncologist is unable to order the test, I will order it from my office. I recommended she return for a follow-up appointment in six months. Patient Instructions - Continue your current breast cancer treatment as directed by your oncologist. - Continue taking your lisinopril and carvedilol once a day for blood pressure management. - Please ask your oncologist to add a thyroid test (TSH) to your next blood work. - If your oncologist cannot order the thyroid test, please contact our office so we can order it for you. - Please schedule a follow-up appointment with our office in 6 months.
[2025-04-27 09:18] VITALS: BP 120/78; PULSE 69; TEMP 36.2; O2SAT 100; BMI 25.0
== END 2025-04-27 09:49 | disposition home or self-care (01) ==
LOC: HO.HMCH 08:37
PROVIDERS: PCP Internal Medicine; Visit Provider Internal Medicine
DX: C50.919 Malignant neoplasm of unspecified site of unspecified female breast (principal)

== ENCOUNTER → 2025-04-27 08:36 | Outpatient (BNVA) | payer MEDICARE, SELFPAY | PROVIDERS: PCP Internal Medicine; Visit Provider Internal Medicine | DX: I10 Essential (primary) hypertension (principal); C50.919 Malignant neoplasm of unspecified site of unspecified female breast; Z79.899 Other long term (current) drug therapy | CPT/HCPCS: 99212 ==